=== PATIENT | female | born 1995 | race Hispanic/Latino ===

== ENCOUNTER 2017-10-10 15:41 | Emergency (ER) | payer OTHER, SELFPAY ==
--- NOTE | 2017-10-10 16:57 | RAD REPORT ---
EXAM DESCRIPTION: RAD - Hand Left 3 View - 10/10/2017 4:38 pm CLINICAL HISTORY: Pain;Swelling COMPARISON: <Comparisons> FINDINGS: Significant soft tissue swelling is seen and along the dorsum of the hand. Mild radiocarpa l arthritic changes are seen. Bony remodeling of the fifth metacarpal noted, presumably related to pr evious trauma. No acute fracture seen.
--- NOTE | 2017-10-10 18:15 | ER ---
Nurse's Notes [facility] Name: Yolanda Christianson Age: 21 yrs Sex: Female : 1995 Arrival Date: 10/10/2017 Time: 15:42 Bed 25 Private MD: Diagnosis: Pain in left hand-s/p fracture to fifth metacarpal Presentation: 10/10 15:51 Presenting complaint: Patient states: " I hurt my wrist about 2 weeks ago. 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 Transition of care: patient was not received from another setting of care. Onset of symptoms was October 10, 2017. Risk Assessment: Do you want to hurt yourself or someone else? Patient reports no desire to harm self or others. Initial Sepsis Screen: Does the patient meet any 2 criteria? No. Patient's initial sepsis screen is negative. Does the patient have a suspected source of infection? No. Patient's initial sepsis screen is negative. Care prior to arrival: None. 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 - Social history:: Smoking status: unknown. - Ebola Screening: : No symptoms or risks identified at this time. Screenin:15 Abuse screen: Denies threats or abuse. Denies injuries from another. Nutritional sv screening: No deficits noted. Tuberculosis screening: No symptoms or risk factors identified. Fall Risk None identified. Assessment: 18:00 General: Appears in no apparent distress. uncomfortable, well developed, Behavior is sv calm, cooperative, appropriate for age. Pain: Complains of pain in left arm Pain currently is 7 out of 10 on a pain scale. Quality of pain is described as throbbing, Pain began weeks ago Is continuous, Aggravated by increased activity, Noted to be guarding, resistant to movement. Neuro: Level of Consciousness is awake, alert, obeys commands, Oriented to person, place, time, situation, Gait is steady. Cardiovascular: Capillary refill < 3 seconds is brisk in bilateral fingers Patient's skin is warm and dry. Pulses are palpable in right radial artery and left radial artery. Respiratory: Respiratory effort is even, unlabored, Respiratory pattern is regular, symmetrical. Derm: Skin is pink, warm \\T\\ dry. Musculoskeletal: Range of motion: limited in left wrist Swelling present in left wrist and left hand. 19:10 Reassessment: Patient appears in no apparent distress at this time. Patient and/or sv family updated on plan of care and expected duration. Pain level reassessed. Patient is alert, oriented x 3, equal unlabored respirations, skin warm/dry/pink. Cardiovascular: Capillary refill < 3 seconds is brisk in left fingers Patient's skin is warm and dry. Musculoskeletal: Pt able to wiggle left fingers. Vital Signs: 15:56 BP 138 / 80; Pulse 96; Resp 16; Temp 98.4; Pulse Ox 98% on R/A; Weight 81.65 kg; Height ph 5 ft. 5 in. (165.10 cm); Pain 7/10; 15:56 Body Mass Index 29.95 (81.65 kg, 165.10 cm) ph ED Course: 15:42 Patient arrived in ED. sb2 15:56 Triage completed. ph 15:57 Arm band placed on Patient placed in waiting room, Patient notified of wait time. ph 16:11 Dean Russo NP is PHCP. pm1 16:11 Xavi Villanueva MD is Attending Physician. pm1 16:11 Roma Nieto FNP-C is PHCP. kb 16:13 Danay Morrow, BANDAR is Primary Nurse. sv 16:15 Patient has correct armband on for positive identification. sv 16:39 Hand Left 3 View XRAY In Process Unspecified. EDMS 18:10 Orthoglass splint: Ulnar gutter/Boxer splint applied on left forearm. Sling applied to sv left arm. 18:13 Selvin Roberts MD is Referral Physician. pm1 19:10 No provider procedures requiring assistance completed. Patient did not have IV access sv during this emergency room visit. Administered Medications: 19:10 Drug: [place] 10 mg-325 mg 1 tabs Route: PO; sv 19:10 Follow up: Response: Medication administered at discharge. sv Outcome: 18:15 Discharge ordered by . pm1 19:10 Discharged to home ambulatory, with family, Family driving her home sv 19:10 Condition: stable 19:10 Discharge instructions given to patient, Instructed on discharge instructions, follow up and referral plans. no drinking with medication, no driving heavy equipment, medication usage, Demonstrated understanding of instructions, follow-up care, medications, Prescriptions given X 1. 19:11 Patient left the ED. sv Signatures: Dispatcher [employer] EDMS Roma Nieto, ELIJAH LAZOP-Danay Stephenson RN RN Sunitha Rodriguez RN RN ph Marinas, Patrick, RAMONITA MARSHMALLOW MAKER pm1 Carleen Wiggins2
--- NOTE | 2017-10-10 18:16 | EDPHYS ---
Physician Documentation [facility] Name: Yolanda Christianson Age: 21 yrs Sex: Female : 1995 Arrival Date: 10/10/2017 Time: 15:42 Bed 25 Private MD: ED Physician Xavi Villanueva HPI: 10/10 16:18 This 21 yrs old Female presents to ER via Ambulatory with complaints of Hand pm1 Pain - Injured x2 wks ago. 16:18 The patient or guardian reports pain, swelling. The complaints affect the left hand. pm1 Context: The problem was sustained at home, resulted from lifting or pulling, Trash bag. Onset: The symptoms/episode began/occurred 2 week(s) ago. Modifying factors: The symptoms are alleviated by nothing, the symptoms are aggravated by movement. Associated signs and symptoms: Pertinent negatives: cyanosis distally, decreased sensation distally, fever, numbness distally, tingling distally. Severity of symptoms: in the emergency department the symptoms are unchanged. The patient has not experienced similar symptoms in the past. Injury occurred at work so patient was seen by the occupational physician. Xray performed and was told negative for fracture. Patient was lifting a heavy trash bag with her left hand and felt a pop. Swelling occurred a few hours after injury. Injury occurred 2 weeks ago. Patient was seen by the occupational physician, xray performed, patient given a splint to wear. 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 - Social history:: Smoking status: unknown. - Ebola Screening: : No symptoms or risks identified at this time. ROS: 16:20 Constitutional: Negative for fever, chills, and weight loss, Eyes: Negative for injury, pm1 pain, redness, and discharge, ENT: Negative for injury, pain, and discharge, Neck: Negative for injury, pain, and swelling, Cardiovascular: Negative for chest pain, palpitations, and edema, Respiratory: Negative for shortness of breath, cough, wheezing, and pleuritic chest pain, Abdomen/GI: Negative for abdominal pain, nausea, vomiting, diarrhea, and constipation, Back: Negative for injury and pain. 16:20 Skin: Negative for injury, rash, and discoloration, Neuro: Negative for headache, weakness, numbness, tingling, and seizure. 16:20 MS/extremity: Positive for pain, swelling, tenderness, of the left hand. Exam: 16:20 Constitutional: This is a well developed, well nourished patient who is awake, alert, pm1 and in no acute distress. Head/Face: Normocephalic, atraumatic. Eyes: Pupils equal round and reactive to light, extra-ocular motions intact. Lids and lashes normal. Conjunctiva and sclera are non-icteric and not injected. Cornea within normal limits. Periorbital areas with no swelling, redness, or edema. ENT: Nares patent. No nasal discharge, no septal abnormalities noted. Tympanic membranes are normal and external auditory canals are clear. Oropharynx with no redness, swelling, or masses, exudates, or evidence of obstruction, uvula midline. Mucous membranes moist. Neck: Trachea midline, no thyromegaly or masses palpated, and no cervical lymphadenopathy. Supple, full range of motion without nuchal rigidity, or vertebral point tenderness. No Meningismus. Chest/axilla: Normal chest wall appearance and motion. Nontender with no deformity. No lesions are appreciated. Cardiovascular: Regular rate and rhythm with a normal S1 and S2. No gallops, murmurs, or rubs. Normal PMI, no JVD. No pulse deficits. Respiratory: Lungs have equal breath sounds bilaterally, clear to auscultation and percussion. No rales, rhonchi or wheezes noted. No increased work of breathing, no retractions or nasal flaring. Abdomen/GI: Soft, non-tender, with normal bowel sounds. No distension or tympany. No guarding or rebound. No evidence of tenderness throughout. Back: No spinal tenderness. No costovertebral tenderness. Full range of motion. Skin: Warm, dry with normal turgor. Normal color with no rashes, no lesions, and no evidence of cellulitis. 16:20 Musculoskeletal/extremity: Extremities: grossly normal except: noted in the dorsum of left hand and palm of left hand: swelling, tenderness, intact to left hand, brisk capillary refill. Vital Signs: 15:56 BP 138 / 80; Pulse 96; Resp 16; Temp 98.4; Pulse Ox 98% on R/A; Weight 81.65 kg; Height ph 5 ft. 5 in. (165.10 cm); Pain 7/10; 15:56 Body Mass Index 29.95 (81.65 kg, 165.10 cm) ph MDM: 16:12 Patient medically screened. pm1 18:12 Data reviewed: vital signs. Data interpreted: Pulse oximetry: on room air is 98 %. pm1 Interpretation: normal. Counseling: I had a detailed discussion with the patient and/or guardian regarding: the historical points, exam findings, and any diagnostic results supporting the discharge/admit diagnosis, radiology results, the need for outpatient follow up, to return to the emergency department if symptoms worsen or persist or if there are any questions or concerns that arise at home. 10/10 16:18 Order name: Hand Left 3 View XRAY; Complete Time: 17:08 pm1 10/10 17:11 Order name: Splint - Ulnar Gutter; Complete Time: 18:10 pm1 10/10 18:27 Order name: Sling; Complete Time: 19:10 pm1 Administered Medications: 19:10 Drug: [place] 10 mg-325 mg 1 tabs Route: PO; sv 19:10 Follow up: Response: Medication administered at discharge. sv Disposition: 10/11 06:53 Co-signature as Attending Physician, Xavi Villanueva MD I agree with the assessment and álvaro plan of care. Disposition: 10/10/17 18:15 Discharged to Home. Impression: Pain in left hand - s/p fracture to fifth metacarpal. - Condition is Stable. - Discharge Instructions: Cast or Splint Care, Adult, Metacarpal Fracture, How to Use a Sling, Hand Pain. - Prescriptions for Tylenol- Codeine #3 300-30 mg Oral Tablet - take 2 tablet by ORAL route every 6 hours As needed; 30 tablet. - Medication Reconciliation Form, Thank You Letter, Antibiotic Education, Prescription Opioid Use form. - Follow up: Emergency Department; When: As needed; Reason: Worsening of condition. Follow up: Selvin Roberts MD; When: 2 - 3 days; Reason: Recheck today's complaints, Continuance of care, Re-evaluation by your physician. - Problem is new. - Symptoms have improved. Signatures: Dispatcher [employer] Danay Lomax RN RN Xavi Lackey MD MD cha Hall, Patricia, RN RN Dean Thompson, CONTACT CENTER REPRESENTATIVE CONTACT CENTER REPRESENTATIVE pm1 Corrections: (The following items were deleted from the chart) 10/10 19:11 18:15 10/10/2017 18:15 Discharged to Home. Impression: Pain in left hand - s/p fracture sv to fifth metacarpal. Condition is Stable. Forms are Medication Reconciliation Form, Thank You Letter, Antibiotic Education, Prescription Opioid Use. Follow up: Emergency Department; When: As needed; Reason: Worsening of condition. Follow up: Selvin Roberts; When: 2 - 3 days; Reason: Recheck today's complaints, Continuance of care, Re-evaluation by your physician. Problem is new. Symptoms have improved. pm1
[2017-10-10] MEDS ORDERED: HYDROCODONE/APAP 10/325 TAB ONE (19:01)
== END 2017-10-10 19:11 | disposition home or self-care (01) ==
LOC: ER 15:41
PROC: 2W3DX1Z Immobilization of Left Lower Arm using Splint (ICD-10-PCS; principal; 2017-10-10)
DX: S62.307A Unspecified fracture of fifth metacarpal bone, left hand, initial encounter for closed fracture (principal); X50.0XXA Overexertion from strenuous movement or load, initial encounter; Y93.89 Activity, other specified; Y92.89 Other specified places as the place of occurrence of the external cause
CPT/HCPCS: 99284

== ENCOUNTER 2017-10-22 11:36 | Emergency (ER) | payer SELFPAY ==
--- NOTE | 2017-10-22 12:40 | ER ---
Nurse's Notes [facility] Name: Yolanda Christianson Age: 21 yrs Sex: Female : 1995 Arrival Date: 10/22/2017 Time: 11:50 Bed 12 Private MD: None, None Diagnosis: Pain in left hand-s/p fifth metacarpal fracture 6 weeks ago Presentation: 10/22 11:53 Presenting complaint: Patient states: Reports pain and numbness to left hand that aj started yesterday. Patient DX with %th metacarpal FX 2 weeks ago. Transition of care: patient was not received from another setting of care. Onset of symptoms was October 21, 2017. Risk Assessment: Do you want to hurt yourself or someone else? Patient reports no desire to harm self or others. Initial Sepsis Screen: Does the patient meet any 2 criteria? No. Patient's initial sepsis screen is negative. Does the patient have a suspected source of infection? No. Patient's initial sepsis screen is negative. Care prior to arrival: None. 11:53 Method Of Arrival: Ambulatory 11:53 Acuity: KELLI 4 Triage Assessment: 11:55 General: Appears in no apparent distress. comfortable, Behavior is calm, cooperative, aj appropriate for age. Pain: Complains of pain in left hand. Neuro: Level of Consciousness is awake, alert, obeys commands, Oriented to person, place, time, situation, Appropriate for age. Respiratory: Airway is patent Respiratory effort is even, unlabored, Respiratory pattern is regular, symmetrical. Derm: Skin is intact, is healthy with good turgor, Skin is pink, warm \T\ dry. normal. Musculoskeletal: Reports numbness in left hand pain in left hand. 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 - Social history:: Smoking status: Patient/guardian denies using tobacco. - Ebola Screening: : Patient negative for fever greater than or equal to 101.5 degrees Fahrenheit, and additional compatible Ebola Virus Disease symptoms Patient denies exposure to infectious person Patient denies travel to an Ebola-affected area in the 21 days before illness onset No symptoms or risks identified at this time. Screenin:40 Abuse screen: Denies threats or abuse. Denies injuries from another. Nutritional iw screening: No deficits noted. Tuberculosis screening: No symptoms or risk factors identified. Fall Risk None identified. Assessment: 12:00 General: Appears in no apparent distress. comfortable, Behavior is calm, cooperative. iw Pain: Complains of pain in left little finger and left hand. Neuro: Level of Consciousness is awake, alert, obeys commands, Oriented to person, place, time, situation, Moves all extremities. Cardiovascular: Patient's skin is warm and dry. Respiratory: Respiratory effort is even, unlabored, Respiratory pattern is regular, symmetrical. Derm: Skin is intact, is healthy with good turgor. Musculoskeletal: Range of motion: limited in left hand. Vital Signs: 11:55 BP 140 / 74; Pulse 92; Resp 16; Temp 97.8; Pulse Ox 98% on R/A; Weight 81.65 kg; Height aj 5 ft. 5 in. (165.10 cm); 11:55 Body Mass Index 29.95 (81.65 kg, 165.10 cm) aj ED Course: 11:50 Patient arrived in ED. sb2 11:50 None, None is Private Physician. sb2 11:55 Triage completed. aj 11:55 Arm band placed on right wrist. Patient placed in waiting room, Patient notified of aj wait time. 12:00 Patient has correct armband on for positive identification. iw 12:25 Roma [facility]iet[facility] F[facility]-C [facility]. kb 12:25 Raul Chapman MD is Attending Physician. kb 12:36 Ellen Ferreira, BANDAR is Primary Nurse. iw 13:14 Orthoglass splint: Ulnar gutter/Boxer splint applied on left forearm. em1 13:40 No provider procedures requiring assistance completed. Patient did not have IV access iw during this emergency room visit. Administered Medications: No medications were administered Outcome: 12:40 Discharge ordered by . kb 13:44 Discharged to home ambulatory. iw 13:44 Condition: good 13:44 Discharge instructions given to patient, Instructed on discharge instructions, follow up and referral plans. Demonstrated understanding of instructions, follow-up care, splint care. 13:45 Patient left the ED. iw Signatures: Roma Nieto, THREAD CUTTER TENDER-C THREAD CUTTER TENDER-Rose Mary Gomez, RN RN Ellen John, RN RN Kyaw Ross em1 Carleen Wiggins sb2
--- NOTE | 2017-10-22 12:40 | EDPHYS ---
Physician Documentation [facility] Name: Yolanda Christianson Age: 21 yrs Sex: Female : 1995 Arrival Date: 10/22/2017 Time: 11:50 Bed 12 Private MD: None, None ED Physician Raul Chapman HPI: 10/22 12:35 This 21 yrs old Female presents to ER via Ambulatory with complaints of Arm kb Pain. 12:35 The patient or guardian complains of injury, pain, swelling. The complaints affect the kb left hand. Context: The problem was sustained at work. Onset: The symptoms/episode began/occurred 6 week(s) ago. Treatment prior to arrival includes: splinting the affected extremity. Modifying factors: The symptoms are alleviated by nothing. the symptoms are aggravated by movement. Associated signs and symptoms: Pertinent positives: numbness, pain, swelling. Severity of symptoms: At their worst the symptoms were moderate, in the emergency department the symptoms are unchanged. The patient has not experienced similar symptoms in the past. The [facility], The patient has been recently seen at the [facility] Emergency Department. Pt was diagnosed with fracture 2 weeks ago. Still having pain, swelling and intermittent numbness. Has not followed up with ortho. . 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 - Social history:: Smoking status: Patient/guardian denies using tobacco. - Ebola Screening: : Patient negative for fever greater than or equal to 101.5 degrees Fahrenheit, and additional compatible Ebola Virus Disease symptoms Patient denies exposure to infectious person Patient denies travel to an Ebola-affected area in the 21 days before illness onset No symptoms or risks identified at this time. ROS: 12:35 Constitutional: Negative for fever, chills, and weight loss, Cardiovascular: Negative kb for chest pain, palpitations, and edema, Respiratory: Negative for shortness of breath, cough, wheezing, and pleuritic chest pain, Abdomen/GI: Negative for abdominal pain, nausea, vomiting, diarrhea, and constipation, Skin: Negative for injury, rash, and discoloration, Neuro: Negative for headache, weakness, numbness, tingling, and seizure. 12:35 MS/extremity: Positive for injury or acute deformity, pain, swelling. Exam: 12:35 Constitutional: This is a well developed, well nourished patient who is awake, alert, kb and in no acute distress. Head/Face: Normocephalic, atraumatic. Chest/axilla: Normal chest wall appearance and motion. Nontender with no deformity. No lesions are appreciated. Cardiovascular: Regular rate and rhythm with a normal S1 and S2. No gallops, murmurs, or rubs. Normal PMI, no JVD. No pulse deficits. Respiratory: Lungs have equal breath sounds bilaterally, clear to auscultation and percussion. No rales, rhonchi or wheezes noted. No increased work of breathing, no retractions or nasal flaring. Abdomen/GI: Soft, non-tender, with normal bowel sounds. No distension or tympany. No guarding or rebound. No evidence of tenderness throughout. Skin: Warm, dry with normal turgor. Normal color with no rashes, no lesions, and no evidence of cellulitis. Neuro: Awake and alert, GCS 15, oriented to person, place, time, and situation. Cranial nerves II-XII grossly intact. Motor strength 5/5 in all extremities. Sensory grossly intact. Cerebellar exam normal. Normal gait. 12:35 Musculoskeletal/extremity: Extremities: grossly normal except: noted in the left hand: pain, swelling, ROM: limited active range of motion due to pain, in the left little finger, Circulation is intact in all extremities. Sensation intact. Vital Signs: 11:55 BP 140 / 74; Pulse 92; Resp 16; Temp 97.8; Pulse Ox 98% on R/A; Weight 81.65 kg; Height aj 5 ft. 5 in. (165.10 cm); 11:55 Body Mass Index 29.95 (81.65 kg, 165.10 cm) aj MDM: 12:25 Patient medically screened. kb 12:38 Data reviewed: vital signs, nurses notes. Data interpreted: Pulse oximetry: on room air kb is 98 %. Interpretation: normal. Counseling: I had a detailed discussion with the patient and/or guardian regarding: the historical points, exam findings, and any diagnostic results supporting the discharge/admit diagnosis, the need for outpatient follow up, a orthopedic surgeon, to return to the emergency department if symptoms worsen or persist or if there are any questions or concerns that arise at home. ED course: Pt has a follow up appt with [employer] on Wednesday. Educated to keep appt and take copy of x-ray from here to them to view. . 10/22 12:35 Order name: Ulnar Gutter splint; Complete Time: 13:14 kb Administered Medications: No medications were administered Disposition: 10/22/17 12:40 Discharged to Home. Impression: Pain in left hand - s/p fifth metacarpal fracture 6 weeks ago. - Condition is Stable. - Discharge Instructions: Metacarpal Fracture, [id number]. - Medication Reconciliation Form, Thank You Letter, Antibiotic Education, Prescription Opioid Use form. - Follow up: Emergency Department; When: As needed; Reason: Worsening of condition. Follow up: Private Physician; When: 2 - 3 days; Reason: Recheck today's complaints, Continuance of care, Re-evaluation by your physician. Signatures: Roma Nieto, CAPACITOR PACK PRESS OPERATOR-C CAPACITOR PACK PRESS OPERATOR-Ckb Rose Mary Danielle RN RN Ellen John RN RN iw Corrections: (The following items were deleted from the chart) 13:45 12:40 10/22/2017 12:40 Discharged to Home. Impression: Pain in left hand - s/p fifth iw metacarpal fracture 6 weeks ago. Condition is Stable. Forms are Medication Reconciliation Form, Thank You Letter, Antibiotic Education, Prescription Opioid Use. Follow up: Emergency Department; When: As needed; Reason: Worsening of condition. Follow up: Private Physician; When: 2 - 3 days; Reason: Recheck today's complaints, Continuance of care, Re-evaluation by your physician. kb
== END 2017-10-22 13:45 | disposition home or self-care (01) ==
LOC: ER 11:36
DX: S62.307G Unspecified fracture of fifth metacarpal bone, left hand, subsequent encounter for fracture with delayed healing (principal)
CPT/HCPCS: 99283

== ENCOUNTER 2018-09-28 17:20 | Inpatient (IN) | payer OTHER ==
[2018-09-28] MEDS ORDERED: Ringers Lactate 1,000 ML IV PRN (18:19)
[2018-09-28 18:32] VITALS: BMI 38.2
[2018-09-28 18:43] LABS: Absolute Lymphocytes (CBC) 1.7 K/uL (0.7-4.9); Basophils % 0.3 % (0-1.3); Hematocrit 33.3 % (36.0-45.0); Lymphocytes % 17.1 % (15.3-44.8); MPV 11.2 fL (7.6-11.3)
[2018-09-28] MEDS ORDERED: Ringers Lactate 1,000 ML IV SCH (19:00)
--- NOTE | 2018-09-28 19:45 | RAD REPORT ---
EXAM DESCRIPTION: RAD - Abdomen Single View - 09/28/2018 7:36 pm CLINICAL HISTORY: . Assess presentation FINDINGS: Cephalic with spine maternal right
[2018-09-28] MEDS ORDERED: OXYTOCIN/LR 20 UNIT/1,000 ML BAG IV SCH (20:00)
[2018-09-28] MEDS ORDERED: BUTORPHANOL 1 MG/ML INJ IV ONE (20:55)
[2018-09-28] MEDS ORDERED: PROMETHAZINE 25 MG/ML VIAL IM ONE (20:55)
[2018-09-28] MEDS ORDERED: ROPIVACAINE HCL 100 ML IV PRN (21:05)
[2018-09-28] MEDS ORDERED: FENTANYL CITR 100 MCG/2 ML IV ONE (21:05)
[2018-09-28] MEDS ORDERED: ROPIVACAINE HCL 0.2% 20ML AMP IV ONE (21:07)
[2018-09-28 23:12] LABS: RPR (Rapid Plasma Reagin) NON-REACT (NON-REACT)
[2018-09-29] MEDS ORDERED: LIDOCAINE 1% MPF 30 ML VIAL ONE (01:50)
[2018-09-29] MEDS ORDERED: METHYLERGONOVINE 0.2MG/ML AMP IM ONE (01:50)
[2018-09-29] MEDS ORDERED: CARBOPROST TROME 250 MCG/ML IM ONE (02:03)
[2018-09-29] MEDS ORDERED: DIPHENHYDRAMINE 25 MG TAB/CAP PO PRN (02:11)
[2018-09-29] MEDS ORDERED: IBUPROFEN 200 MG TAB PO PRN (02:11)
[2018-09-29] MEDS ORDERED: DOCUSATE NA/SENNA CONC 1 TAB PO PRN (02:11)
[2018-09-29] MEDS ORDERED: BISACODYL 10 MG RECTAL SUPP RECT PRN (02:11)
[2018-09-29] MEDS ORDERED: Oxycodone HCl/Acetaminophen 1 TAB TAB PO PRN ×2 (02:11)
[2018-09-29] MEDS ORDERED: ACETAMINOPHEN 500 MG TAB PO PRN (02:11)
--- NOTE | 2018-09-29 02:35 | PREOPHP ---
Date of Admission: 09/28/2018 Yolanda Christianson, a 22-year-old 5, para 1, 37 weeks and 6 days. When last seen in my office, she was 4 cm, came into labor and delivery at 5 cm according to the nurse evaluation her on admissio n, 100% effaced, possible rupture of membranes. The patient was admitted she has been started on IV Pitocin is starting to contract more regularly at this point. She is 5.5 cm. I am calling her 70% e ffaced, -1 station. Complete rupture of the 4 bags, clear fluid. FHTs normal reactive. She has had 1 mg of Stadol, 25 mg of IM Phenergan. Probably, will be requesting epidural once we get into a goo d more advanced labor pattern. Rh positive. Immune to Rubella. Strep screen negative as stated. A nticipate delivery sometime later this evening. MARIA DE JESUS/JAKE Voice ID: [id number]
[2018-09-29] MEDS ORDERED: OXYTOCIN/LR 20 UNIT/1,000 ML BAG IV SCH (03:00)
[2018-09-29] MEDS: METHYLERGONOVINE 0.2 MG TAB PO PRN ×3 (03:03→11:00)
--- NOTE | 2018-09-29 03:15 | PN ---
Patient is completely dilated. Baby is +1, but she was given spinal block with fentanyl and really c annot feel anything. She is having trouble moving her legs. We have shut off the epidural. We will let it wear off slightly, so she can feel to push. It is difficult to say how long it will be befor e she can adequately push, but right now, she just cannot effectively get the baby out. We will wait until she can start sensing pressure and then she can begin to push. MARIA DE JESUS/JAKE Voice ID: [id number] Report ID: [id number]
--- NOTE | 2018-09-29 09:14 | PN ---
Yolanda Christianson seems to be doing well. Vital signs are stable. Lochia is normal. She has up to t he restroom, voided a 1000 cc, so output is good. We will let her ambulate in the halls, and then if all is well, discontinue her IV fluid. Dismissal instructions given, but we will go over those agai n tomorrow morning. She did not get her Tdap immunization during the . As instructed, she does, though want it before she leaves and we will take care that sometime today. Doing well. Proba arin home tomorrow. MARIA DE JESUS/JAKE Voice ID: [id number] Report ID: [id number]
[2018-09-29] MEDS ORDERED: Tdap (Diph,Pertuss(Acell),Tet Vac) 0.5 ML SYR IMVAC ONE (12:00)
[2018-09-30 07:56] VITALS: BP 138/81; TEMP 97.1
--- NOTE | 2018-09-30 10:58 | OP ---
Surgeon: Kelvin Zamarripa MD Yolanda Christianson is a 22-year-old 5, para 1, 37 weeks and 6 days. Came in at 5 cm, possible early rupture of membranes, and irregular contractions. Baby was as at 0 station. Started on light Pitocin augmentation. Initially, received Stadol IV, Phenergan IM, then epidural-spinal with fentany l. She was so numb that could not push effectively and had to let the medication wear off. Second s tage of 45 minutes to an hour. Spontaneous vaginal delivery of an estimated 8-pound male , Apg ars 9 and 9. Midline second-degree laceration simulating episiotomy, repaired with 2-0 chromic after local infiltration. Moderate uterine hypertonicity after Schultze delivery of the placenta, which w as inspected and noted to be intact and normal. 550 mL blood loss. IV drip Pitocin, 0.2 mg of Methe rgine, and massage. Uterus seems to have contracted down well, but I have ordered Hemabate if there is any further recurrence of significant bleeding. The patient is quite stable throughout. Final Diagnoses: Intrauterine gestation at 38 weeks at time of delivery. Epidural-spinal block. Mo derate uterine hypotonus. NBC/MODL Voice ID: [id number] Report ID: [id number]
[2018-10-03 04:18] LABS: HBsAG Nonreactive (Nonreactive)
--- NOTE | 2018-10-03 10:19 | DS ---
Date of Discharge: 09/30/2018 This is a 22-year-old 5, para 1, at 38 weeks gestation, came in at 5 cm, 60% to 70% effaced, and juan manuel irregularly. Was admitted started on light Pitocin augmentation. Subsequently deliv ered of an estimated 8 pound male, Apgars 9 and 9. Second-degree episiotomy performed. Epidural ane sthesia supplemented by local for repair of second-degree. This was repaired with 2-0 chromic. Schu ltze delivery of the placenta. Patient had moderate hypotonicity. 0.2 mg of Methergine, IV drip Pit ocin, and massage. Estimated blood loss 500 mL. Rh positive, immune to Rubella. Negative beta stre p screen. ; afebrile, ambulating, and voiding. Lochia is normal. She has had her Tdap im munization here in the hospital. She has no post epidural problems. She requests no analgesics on d ismissal and denies any problems with ambulation, dizziness, or any other type of signs of hypovolemi a. Final Diagnoses: Intrauterine gestation at 38 weeks, vaginal delivery, moderate uterine hypotonus. MARIA DE JESUS/AKVEHL Voice ID: [id number] Report ID: [id number]
== END 2018-09-30 10:45 | disposition home or self-care (01) | DRG 807 ==
LOC: L&D 17:20 → 2ND-WC 18:00
PROVIDERS: ADMIT Specialist; ATTEND Specialist
PROC: 10E0XZZ Delivery of Products of Conception, External Approach (ICD-10-PCS; principal; 2018-09-29)
PROC: 0KQM0ZZ Repair Perineum Muscle, Open Approach (ICD-10-PCS; 2018-09-29)
DX: O70.1 Second degree perineal laceration during delivery (principal); Z37.0 Single live birth; O62.2 Other uterine inertia; Z3A.37 37 weeks gestation of pregnancy; Z23 Encounter for immunization
CPT/HCPCS: 36415; 74018; 85025; 86592; 86850; 86900; 86901; 87340; 90471; 90715; J0595; J2210; J2550; J2590; J2795; J3010

== ENCOUNTER 2024-07-06 20:34 | Emergency (ER) | payer OTHER ==
--- OUTSIDE RECORDS SUMMARY | 2024-07-06 20:40 | XMS REPORT | Continuity of Care Document ---
Author Name Unknown Address [address] [place] [address] [facility] Address [address] [place] [address] Care Team Providers Care Floor Surfacer Name Role Phone Rainer Trevino Primary Care Physicia n Doctor Unassigned, [place] Attending Clinician U BARTOLO Amador Attending Clinician Unavailable MASON JACOBO Attending Clinician Unavailable MASON JACOBO Attending Clinician Unavailable MASON JACOBO Attending Clinician Unavailable Mason Jacobo MD Attending Clinician [phone] Bola Hallman MD Attending Clinician [phone] Augustus Evans MD Attending Clinician [phone] RAINER LAUREANO Attending Clinician Unavail able Rainer Trevino Attending Clinician + Luann Le CNM Attending Clinician [phone] LUANN LE Attending Clinician Unavaila ble Visit, LailaRmchdebra Nurse Attending Clinician Unava Harini Cleaning Attending Clinician + Ultrasound, LailaMfm Attending Clinician Unavaila ble Lab, Ang-Rmchp Attending Clinician Unavailable LEXIS VELAZQUEZ Attending Clinician Unav ailable LEXIS VELAZQUEZ Attending Clinician Unav ailable 2, [facility] Attending Clinician UnavailLexis Vasquez MD Attending Clinician + [facility], Harini Davies Attending Clinician + RIVERAHARINI Attending Clinician Unavail able Akinsipriti CNP, Rainer Cedeno Attending Clinician + Doctor Unassigned, [place] Attending Clinician U BOOGIE Hurtado Attending Clinician UnavailBoogie Nieves Attending Clinician + [phone] Geoff Lucas DO Attending Clinician MASON JACOBO Admitting Clinician Unavailable Mason Jacobo MD Admitting Clinician [phone] Payers Payer Name Policy Type Policy Number Effective Date Expirati on Date Source Problems Condition Name Condition Details Condition Category Status Onset Date Resolution Date Last Treatment Date Treating Clinician Comments Source Shoulder dystocia during labor and delivery, delivered Shoulder dystocia during labor and delivery, delivered Disease Active 2023-02 00:00: 00 [facility] Vaginal delivery Vaginal delivery Disease Active 2023-02 00:00: 00 [facility] Single live Single live Disease Active 2023-02 00:00: 00 [facility] Anemia, Anemia, Disease Active 2023-02 00:00: 00 [facility] Obstetrica l laceration Obstetrica l laceration Disease Active 2023-02 00:00: 00 [facility] 38 weeks gestation of 38 weeks gestation of Disease Active 2023-02 00:00: 00 [facility] Morbid obesity with body mass index of 40.0-49.9 Morbid obesity with body mass index of 40.0-49.9 Disease Active 2023-02 00:00: 00 [facility] GDM (gestation al diabetes mellitus) GDM (gestation al diabetes mellitus) Disease Active 2023-02 0-07 00:00: 00 [facility] Decreased platelet count Decreased platelet count Disease Active 9-27 00:00: 00 [facility] Flu vaccine refused Flu vaccine refused Disease Active 9-26 00:00: 00 [facility] Group B Streptococ cus urinary tract infection affecting in second trimester Group B Streptococ cus urinary tract infection affecting in second trimester Disease Active 7-12 00:00: 00 [facility] Rubella non-immune status, antepartum Rubella non-immune status, antepartum Disease Active 7-11 00:00: 00 [facility] Maternal varicella, non-immune Maternal varicella, non-immune Disease Active 7-11 00:00: 00 [facility] Multiparit y Multiparit y Disease Active 7- 00:00: 00 [facility] Obesity in Obesity in Disease Active 7- 00:00: 00 [facility] History of spontaneou s History of spontaneou s Disease Active 7- 00:00: 00 [facility] Supervisio n of high risk , antepartum Supervisio n of high risk , antepartum Disease Active 7- 00:00: 00 [facility] Class 2 obesity due to excess calories with body mass index (BMI) of 36.0 to 36.9 in adult, unspecifie d whether serious comorbidit y present Class 2 obesity due to excess calories with body mass index (BMI) of 36.0 to 36.9 in adult, unspecifie d whether serious comorbidit y present Disease Active 2019-02 2-14 00:00: 00 [facility] Abnormal maternal glucose tolerance, antepartum Abnormal maternal glucose tolerance, antepartum Disease Resolve d 8-03 00:00: 00 2023-12-09 00:00:00 2023-12-09 10:51:51 Overview: Formattin g of this note might be different from the original. Failed 1hr pending 3hr gtt [facility] GBS (group B Streptococ cus carrier), +RV culture, currently GBS (group B Streptococ cus carrier), +RV culture, currently Disease Resolve d 7-12 00:00: 00 2023-11-11 00:00:00 2023-11-11 11:40:02 Overview: Formattin g of this note might be different from the original. PCN intrapart um [facility] Well woman exam Well woman exam Disease Resolve d 3-20 00:00: 00 2023-08-25 00:00:00 2023-08-25 13:46:21 [facility] Other general counseling and advice for contracept omaira management Other general counseling and advice for contracept omaira management Disease Resolve d 3-08 00:00: 00 2023-08-25 00:00:00 2023-08-25 13:46:25 [facility] Screening examinatio n for STD (sexually transmitte d disease) Screening examinatio n for STD (sexually transmitte d disease) Disease Resolve d 2019-02 2-14 00:00: 00 2023-08-25 00:00:00 2023-08-25 13:46:22 [facility] Need for HPV vaccinatio n Need for HPV vaccinatio n Disease Resolve d 2019-02 2-14 00:00: 00 2023-08-25 00:00:00 2023-08-25 13:46:27 [facility] Obesity (BMI 30-39.9) Obesity (BMI 30-39.9) Disease Resolve d 2016-02 0-23 00:00: 00 2023-08-25 00:00:00 2023-08-25 13:46:24 [facility] Class 2 obesity due to excess calories with body mass index (BMI) of 36.0 to 36.9 in adult, unspecifie d whether serious comorbidit y present Class 2 obesity due to excess calories with body mass index (BMI) of 36.0 to 36.9 in adult, unspecifie d whether serious comorbidit y present Disease Resolve d 2019-02 2-14 00:00: 00 2022-05-04 00:00:00 2022-05-04 13:19:51 [facility] BMI 36.0-36.9, adult BMI 36.0-36.9, adult Disease Resolve d 2016-02 00:00: 00 2022-05-04 00:00:00 2022-05-04 13:19:52 [facility] Chlamydia infection affecting Chlamydia infection affecting Disease Resolve d 05-04 00:00: 00 2022-05-04 00:00:00 2022-05-04 13:19:54 Overview: Formattin g of this note might be different from the original. MYA in 3/4 weeks-pos itive, neg 07-22-16 will need a repeat and at 36 weeks [facility] Liveborn , of garcia , born in hospital by vaginal delivery Liveborn , of garcia , born in hospital by vaginal delivery Disease Resolve d 2016-02 00:00: 00 2017-01-12 00:00:00 2017-01-12 11:04:40 [facility] Third-stag e hemorrhage Third-stag e hemorrhage Disease Resolve d 2016-02 00:00: 00 2017-01-12 00:00:00 2017-01-12 11:03:32 [facility] 37 weeks gestation of 37 weeks gestation of Disease Resolve d 2016-02 00:00: 00 2017-01-12 00:00:00 2017-01-12 11:04:29 [facility] Full-term premature rupture of membranes with onset of labor within 24 hours of rupture Full-term premature rupture of membranes with onset of labor within 24 hours of rupture Disease Resolve d 2016-02 00:00: 00 2017-01-12 00:00:00 2017-01-12 11:04:32 [facility] Benign gestationa l thrombocyt openia in third trimester Benign gestationa l thrombocyt openia in third trimester Disease Resolve d 2016-02 00:00: 00 2017-01-12 00:00:00 2017-01-12 11:04:37 [facility] Group B streptococ sherry infection during Group B streptococ sherry infection during Disease Resolve d 2016-02 0-13 00:00: 00 2017-01-12 00:00:00 2017-01-12 11:04:24 [facility] Glucosuria Glucosuria Disease Resolve d 606 00:00: 00 2017-01-12 00:00:00 2017-01-12 11:03:43 [facility] Elevated blood pressure reading without diagnosis of hypertensi on Elevated blood pressure reading without diagnosis of hypertensi on Disease Resolve d 6 00:00: 00 2017-01-12 00:00:00 2017-01-12 11:03:47 [facility] Susceptibl e to varicella (non-immun e), currently Susceptibl e to varicella (non-immun e), currently Disease Resolve d 05-08 00:00: 00 2017-01-12 00:00:00 2017-01-12 11:03:40 [facility] Supervisio n of high risk , antepartum Supervisio n of high risk , antepartum Disease Resolve d 05-01 00:00: 00 2017-01-12 00:00:00 2017-01-12 11:03:34 [facility] History of miscarriag e, currently History of miscarriag e, currently Disease Resolve d 05-01 00:00: 00 2017-01-12 00:00:00 2017-01-12 11:03:38 [facility] Chlamydia Chlamydia Disease Resolve d 07-22 00:00: 00 2016-11-25 00:00:00 2016-11-25 09:06:03 [facility] Complete spontaneou s without complicati on Complete spontaneou s without complicati on Disease Resolve d 10-10 00:00: 00 2016-05-01 00:00:00 2016-05-01 15:16:58 [facility] Habitual history, antepartum Habitual history, antepartum Disease Resolve d 10-10 00:00: 2016-05-01 00:00:00 2016-05-01 15:16:58 [facility] Chlamydia trachomati s infection of lower genitourin [place] sites Chlamydia trachomati s infection of lower genitourin [place] sites Disease Resolve d 7 00:00: 00 2016-05-01 00:00:00 2016-05-01 15:16:58 [facility] History of miscarriag e, currently , first trimester History of miscarriag e, currently , first trimester Disease Resolve d 08-14 00:00: 00 2016-05-01 00:00:00 2016-05-01 15:16:58 [facility] History of chlamydia History of chlamydia Disease Resolve d 08-14 00:00: 00 2016-05-01 00:00:00 2016-05-01 15:16:59 [facility] Chlamydia trachomati s infection of lower genitourin [place] sites Chlamydia trachomati s infection of lower genitourin [place] sites Disease Resolve d 06-29 00:00: 00 2015-08-15 00:00:00 2015-08-15 23:01:31 [facility] Allergies, Adverse Reactions, Alerts Allergy Name Allergy Type Status Severity Reaction(s) Onset Date Inactive Date Treating Clinician Comments Source NO KNOWN ALLERGIE S Drug Class Active [facility] Social History Social Habit Start Date Stop Date Quantity Comments Source ASSERTION 2023-05-27 00:00:00 [facility] History SDOH Alcohol Comment [facility] Alcoholic beverage intake 2023-11-11 00:00:00 2023-11-11 00:00:00 Current drinker of alcohol (finding) [facility] Tobacco use and exposure 2023-08-25 00:00:00 2023-08-25 00:00:00 Smokeless tobacco non-user [facility] Exposure to SARS-CoV-2 (event) 2022-04-24 00:00:00 2022-05-04 12:54:00 Not sure [facility] Alcohol intake 2022-05-04 00:00:00 2022-05-04 00:00:00 Current drinker of alcohol (finding) [facility] History of Social function 2020-01-29 00:00:00 2020-01-29 00:00:00 [facility] History SDOH Alcohol Frequency 2020-01-29 00:00:00 2020-01-29 00:00:00 3 [facility] History SDOH Alcohol Std Drinks 2020-01-29 00:00:00 2020-01-29 00:00:00 99 [facility] History SDOH Alcohol Binge 2020-01-29 00:00:00 2020-01-29 00:00:00 99 [facility] Sex assigned at 1995 00:00:00 1995 00:00:00 [facility] Smoking Status Start Date Stop Date Source Never smoked tobacco [facility] Medications Ordered Medication Name Filled Medication Name Start Date Stop Date Current Medication? Ordering Clinician Indication Dosage Frequency Signature (SIG) Comments Components Source vitamin w/FA tablet 2023-02 00:00: 00 Yes [id number] 1{tbl} Take 1 tablet by mouth in the morning. [facility] docusate 100 mg capsule 2023-02 00:00: 00 Yes [id number] 200mg Take 2 capsules by mouth once daily as needed for Constipati on. [facility] ferrous sulfate 325 mg (65 mg iron) tablet 2023-02 00:00: 00 Yes [id number] 325mg Take 1 tablet by mouth in the morning. [facility] ibuprofen 800 mg tablet 2023-02 00:00: 00 Yes [id number] 800mg Take 1 tablet by mouth every 8 (eight) hours as needed (pain). Take with food or milk. [facility] ibuprofen (IBU) tablet 600 mg 2023-02 21:15: 00 02-07 22:32 :28 No 600mg 600 mg, Oral, Q8HA1, First dose on Wed02/07/24 at 1515, Until Discontinu ed, Routine [facility] acetaminoph en (TYLENOL) tablet 650 mg 2023-02 19:00: 00 02-07 22:32 :28 No 650mg 650 mg, Oral, Q8H, First dose on Wed02/07/24 at 1300, Until Discontinu ed, Routine [facility] rho(D) immune globulin (RHOPHYLAC) injection 300 mcg 2023-02 18:45: 14 02-07 22:32 :28 No 300ug [facility] diphenhydrA MINE (BENADRYL) tablet 25 mg 2023-02 18:45: 08 02-07 22:32 :28 No 25mg [facility] ondansetron (ZOFRAN (PF)) injection 4 mg 2023-02 18:45: 08 02-07 22:32 :28 No 4mg [facility] simethicone (GAS RELIEF (SIMETHICON E)) chewable tablet 160 mg 2023-02 18:45: 08 02-07 22:32 :28 No 160mg [facility] docusate (COLACE) capsule 200 mg 2023-02 18:45: 08 02-07 22:32 :28 No 200mg 200 mg, Oral, QDAILYPRN, Starting on Wed02/07/24 at 1245, Until Wed02/08/24 at 1632, Routine, Constipati on [facility] magnesium hydroxide (MILK OF MAGNESIA) 400 mg/5 mL suspension 30 mL 2023-02 18:45: 08 02-07 22:32 :28 No 30mL [facility] benzocaine- menthol (DERMOPLAST ) 20-0.5 % topical spray 2023-02 18:45: 08 02-07 22:32 :28 No Topical, PRN, Starting on Wed02/07/24 at 1245, Until Wed02/08/24 at 1632, Routine, Perineum discomfort [facility] miSOPROStoL (CYTOTEC) tablet 400 mcg 2023-02 18:30: 00 02-06 17:15 :00 No 400ug 400 mcg, Oral, ONCE, 1 dose, On Wed02/07/24 at 1230, Routine [facility] methylergon ovine (METHERGINE ) injection 0.2 mg 2023-02 18:30: 00 02-06 17:13 :00 No .2mg 0.2 mg, Intramuscu lar, ONCE NOW, 1 dose, On Wed02/07/24 at 1230, Routine [facility] insulin regular human (HUMULIN R) 100 Units in NaCl 0.9% (NS) 100 mL infusion 2023-02 15:48: 59 02-07 03:05 :23 No 1U/h 1 Units/hr (1 mL/hr), IV Infusion, TITRATE, Parameters in Admin. Instr., Starting on Wed02/07/24 at 0948, Prior to connecting infusion to peripheral line, waste a minimum of 25 mL to allow maximum adherence to the plastic tubing. Deliver via volume controlled infusion pump with buretrol at the most proximal port. Add 1 hours volume to the buretrol each hour and infuse. 1. Glucose < 60 and patient asymptomat ic - Turn off insulin and [employer]. 2. Glucose < 60 and patient symptomati c - Turn off insulin, [employer], consider intramuscu lar glucagon, oral glucose therapy if not otherwise contraindi cated. 3. Glucose > 60 < 80 and patient is symptomati c - Turn off insulin, [employer] for dextrose fluid rate increase. Insulin drip protocol: Blood glucose (mg/dL) Insulin dosage (units/hr) IVF (125ml/hr) < 100 0 D5LR 100-140 1 D5LR 141-180 1.5 LR 181-220 2 LR 220-260 2.5 LR 260-300 3.0 LR >300 3.5 LR [facility] terbutaline (BRETHINE) injection 0.25 mg 2023-02 15:45: 00 02-06 14:31 :00 No .25mg 0.25 mg, Intravenou s, ONCE, 1 dose, On Wed02/07/24 at 0945, Routine [facility] amnioinfusi on IV infusion via GRAVITY 0.9 NaCL 500 mL 2023-02 15:15: 00 02-06 14:58 :00 No 500mL at 500 mL/hr, Intrauteri ne, ONCE, 1 dose, On Wed02/07/24 at 0915, FEDERICO, Infuse via gravity 500 ml over 1 hour. Once 500 mL has been infused, the infusion may be discontinu ed. [employer] if uterine resting tone exceeds 25 mmHg at any time during the amnioinfus ion. Obstetrics (LINDA) Aminoinfus ion Orders [facility] lactated ringers IV infusion 250 mL 2023-02 13:15: 00 02-06 18:38 :37 No 250mL at 999 mL/hr, 250 mL, IV Infusion, ONCE, 1 dose, On Wed02/07/24 at 0715, Routine [facility] ropivacaine 0.2 % (NAROPIN (PF)) epidural infusion 2023-02 12:46: 00 02-06 20:33 :10 No Epidural, CONTINUOUS PRN, Starting on Wed02/07/24 at 0646, Until Wed02/07/24 at 1433, Routine, Intra-op [facility] lidocaine-e pinephrine (XYLOCAINE W/EPINEPHRI NE) 1.5 %-1:200,000 injection 2023-02 12:44: 00 02-06 20:33 :10 No Epidural, ONCE INTRA PROCEDURE, Starting on Wed02/07/24 at 0644, Until Wed02/07/24 at 1433, Routine, Intra-op [facility] sodium citrate-cit nir acid (BICITRA) 500-334 mg/5 mL solution 30 mL 2023-02 12:19: 46 02-06 12:38 :00 No 30mL 30 mL, Oral, PRE-PROCED URE ONCE, 1 dose, Starting on Wed02/07/24 at 0619, Until Wed02/07/24 at 0638, Routine, Surgery/Pr ocedure [facility] famotidine (PEPCID) 20 mg tablet 2023-02 1-07 00:00: 00 02-07 00:00 :00 No [id number] 20mg Take 1 tablet by mouth in the morning and 1 tablet in the evening. [facility] Blood-Gluco se Meter (FREESTYLE LITE METER) Kit 2023-02 0 00:00: 00 02-07 00:00 :00 No [id number] Check blood glucose 4x daily [facility] lancets (FREESTYLE LANCETS) 28 gauge Misc 2023-02 0- 00:00: 00 02-07 00:00 :00 No [id number] Check glucose 4x daily [facility] blood sugar diagnostic (FREESTYLE LITE STRIPS) strip 2023-02 0 00:00: 00 02-07 00:00 :00 No [id number] Check blood glucose 4x daily [facility] ampicillin 500 mg capsule 09-14 00:00: 00 12-22 00:00 :00 No 500mg Take 1 capsule by mouth every 6 (six) hours. [facility] ampicillin 500 mg capsule 08-26 00:00: 00 09-06 04:59 :00 No [id number] 500mg Take 1 capsule by mouth 4 (four) times daily for 10 days. [facility] vit no.124/iron /folic ( VITAMIN ORAL) 08-24 13:50: 38 08-24 00:00 :00 No Take by mouth. [facility] vit 33-iron-fol ic-dha (SELECT-OB + DHA) 29 mg iron-1 mg -250 mg combo pack 08-24 00:00: 00 02-07 00:00 :00 No [id number] 1{packe t} Take 1 Packet by mouth in the morning. [facility] doxycycline hyclate 100 mg tablet 05-06 00:00: 00 05-14 04:59 :00 No [id number] 100mg Take 1 tablet by mouth in the morning and 1 tablet in the evening. Do all this for 7 days. [facility] VIT CALC,IRON,F OLIC ( VITAMIN ORAL) 05-04 13:00: 13 05-04 00:00 :00 No Take by mouth. [facility] metroNIDAZO LE 500 mg tablet 8-12 00:00: 00 05-04 00:00 :00 No [id number] 500mg Take 1 tablet by mouth 2 (two) times daily. [facility] azithromyci n 500 mg tablet 3-09 00:00: 00 04-24 05:59 :00 No [id number] 1000mg Take 2 tablets by mouth once now for 1 dose. [facility] metroNIDAZO LE 500 mg tablet 2019-02 00:00: 00 02-01 05:59 :00 No [id number] 1000mg Take 2 tablets by mouth 2 (two) times daily for 1 day. [facility] VIT CALC,IRON,F OLIC ( VITAMIN ORAL) 2016-02 17:04: 46 Yes Take by mouth. [facility] VIT CALC,IRON,F OLIC ( VITAMIN ORAL) 2016-02 11:04: 46 Yes Take by mouth. [facility] vitamin w/FA tablet 2016-02 00:00: 00 05-04 00:00 :00 No 1{tbl} Take 1 tablet by mouth daily. [facility] docusate calcium 240 mg capsule 2016-02 00:00: 00 05-04 00:00 :00 No 240mg Take 1 capsule by mouth once daily as needed for Constipati on. [facility] ferrous sulfate 325 mg (65 mg iron) tablet 2016-02 00:00: 00 05-04 00:00 :00 No 325mg Take 1 tablet by mouth 2 (two) times daily. [facility] ibuprofen 600 mg tablet 2016-02 00:00: 00 05-04 00:00 :00 No 600mg Take 1 tablet by mouth every 6 (six) hours as needed for Pain (scale 1-3) or Pain (scale 4-6) (Pain). Take with food or milk. [facility] Immunizations Ordered Immunization Name Filled Immunization Name Date Status Comments Source TDAP 2023-12-02 00:00:00 Completed HPV9 2020-01-29 00:00:00 Completed [facility] HPV9 2020-01-29 00:00:00 Completed [facility] HPV9 2020-01-29 00:00:00 Completed [facility] HPV9 2020-01-29 00:00:00 Completed [facility] HPV9 2020-01-29 00:00:00 Completed [facility] HPV9 2020-01-29 00:00:00 Completed [facility] HPV9 2020-01-29 00:00:00 Completed [facility] HPV9 2020-01-29 00:00:00 Completed [facility] HPV9 2020-01-29 00:00:00 Completed [facility] HPV9 2020-01-29 00:00:00 Completed [facility] HPV9 2020-01-29 00:00:00 Completed [facility] HPV9 2020-01-29 00:00:00 Completed [facility] HPV9 2020-01-29 00:00:00 Completed [facility] HPV9 2020-01-29 00:00:00 Completed [facility] HPV9 2020-01-29 00:00:00 Completed [facility] HPV9 2020-01-29 00:00:00 Completed [facility] TDAP 2016-09-30 00:00:00 Completed [facility] TDAP 2016-09-30 00:00:00 Completed [facility] TDAP 2016-09-30 00:00:00 Completed [facility] TDAP 2016-09-30 00:00:00 Completed [facility] TDAP 2016-09-30 00:00:00 Completed [facility] TDAP 2016-09-30 00:00:00 Completed [facility] TDAP 2016-09-30 00:00:00 Completed [facility] TDAP 2016-09-30 00:00:00 Completed [facility] TDAP 2016-09-30 00:00:00 Completed [facility] TDAP 2016-09-30 00:00:00 Completed [facility] Tdap 2016-09-30 00:00:00 Completed [facility] TDAP 2016-09-30 00:00:00 Completed [facility] TDAP 2016-09-30 00:00:00 Completed [facility] TDAP 2016-09-30 00:00:00 Completed [facility] TDAP 2016-09-30 00:00:00 Completed [facility] TDAP 2016-09-30 00:00:00 Completed [facility] TDAP 2016-09-30 00:00:00 Completed [facility] TDAP 2016-09-30 00:00:00 Completed [facility] TDAP Unknown Completed [facility] HPV9 Unknown Completed [facility] TDAP Unknown Completed [facility] HPV9 Unknown Completed [facility] TDAP Unknown Completed [facility] HPV9 Unknown Completed [facility] TDAP Unknown Completed [facility] HPV9 Unknown Completed [facility] TDAP Unknown Completed [facility] HPV9 Unknown Completed [facility] TDAP Unknown Completed [facility] HPV9 Unknown Completed [facility] TDAP Unknown Completed [facility] HPV9 Unknown Completed [facility] TDAP Unknown Completed [facility] HPV9 Unknown Completed [facility] TDAP Unknown Completed [facility] HPV9 Unknown Completed [facility] TDAP Unknown Completed [facility] HPV9 Unknown Completed [facility] Vital Signs Vital Name Observation Time Observation Value Comments S ource Systolic blood pressure 2024-02-08 14:54:00 117 mm[Hg] [facility] Diastolic blood pressure 2024-02-08 14:54:00 76 mm[Hg] [facility] Heart rate 2024-02-08 14:54:00 89 /min [facility] Body temperature 2024-02-08 14:54:00 36.72 Johanny [facility] Respiratory rate 2024-02-08 14:54:00 18 /min [facility] [place] Oxygen saturation in Arterial blood by Pulse oximetry 2024-02-08 14:54:00 98 /min [facility] Body height 2024-02-07 12:25:00 165.1 cm [facility] Body weight 2024-02-07 12:25:00 112 kg [facility] BMI 2024-02-07 12:25:00 41.09 kg/m2 [facility] Systolic blood pressure 2024-02-02 22:00:00 123 mm[Hg] [facility] Diastolic blood pressure 2024-02-02 22:00:00 64 mm[Hg] [facility] Heart rate 2024-02-02 22:00:00 90 /min [facility] Body temperature 2024-02-02 22:00:00 36.56 Johanny [facility] [place] Respiratory rate 2024-02-02 22:00:00 17 /min [facility] [place] Body height 2024-02-02 22:00:00 165.1 cm [facility] Body weight 2024-02-02 22:00:00 111.222 kg [facility] BMI 2024-02-02 22:00:00 40.80 kg/m2 [facility] Systolic blood pressure 2024-01-25 21:31:00 128 mm[Hg] [facility] Diastolic blood pressure 2024-01-25 21:31:00 64 mm[Hg] [facility] Heart rate 2024-01-25 21:25:00 96 /min [facility] Body temperature 2024-01-25 21:25:00 36.67 Johanny [facility] [place] Respiratory rate 2024-01-25 21:25:00 18 /min [facility] Body height 2024-01-25 21:25:00 165.1 cm [facility] Body weight 2024-01-25 21:25:00 110.224 kg [facility] BMI 2024-01-25 21:25:00 40.44 kg/m2 [facility] Systolic blood pressure 2024-01-18 18:29:00 126 mm[Hg] [facility] Diastolic blood pressure 2024-01-18 18:29:00 75 mm[Hg] [facility] Heart rate 2024-01-18 18:29:00 92 /min [facility] Body temperature 2024-01-18 18:29:00 36.61 Johanny [facility] [place] Respiratory rate 2024-01-18 18:29:00 18 /min [facility] Body height 2024-01-18 18:29:00 165.1 cm [facility] Body weight 2024-01-18 18:29:00 108.682 kg [facility] BMI 2024-01-18 18:29:00 39.87 kg/m2 [facility] Systolic blood pressure 2024-01-04 21:18:00 135 mm[Hg] [facility] Diastolic blood pressure 2024-01-04 21:18:00 69 mm[Hg] [facility] Heart rate 2024-01-04 21:18:00 103 /min [facility] Body temperature 2024-01-04 21:18:00 36.44 Johanny [facility] [place] Respiratory rate 2024-01-04 21:18:00 18 /min [facility] Body height 2024-01-04 21:18:00 165.1 cm [facility] Body weight 2024-01-04 21:18:00 107.304 kg [facility] BMI 2024-01-04 21:18:00 39.37 kg/m2 [facility] Systolic blood pressure 2023-12-23 20:34:00 135 mm[Hg] [facility] Diastolic blood pressure 2023-12-23 20:34:00 67 mm[Hg] [facility] Heart rate 2023-12-23 20:34:00 93 /min [facility] Body temperature 2023-12-23 20:34:00 36.56 Johanny [facility] [place] Respiratory rate 2023-12-23 20:34:00 18 /min [facility] Body height 2023-12-23 20:34:00 165.1 cm [facility] Body weight 2023-12-23 20:34:00 105.716 kg [facility] BMI 2023-12-23 20:34:00 38.78 kg/m2 [facility] Systolic blood pressure 2023-12-09 15:38:00 127 mm[Hg] [facility] Diastolic blood pressure 2023-12-09 15:38:00 60 mm[Hg] [facility] Heart rate 2023-12-09 15:38:00 86 /min [facility] Body temperature 2023-12-09 15:38:00 36 Johanny [facility] [place] Respiratory rate 2023-12-09 15:38:00 18 /min [facility] Body height 2023-12-09 15:38:00 165.1 cm [facility] Body weight 2023-12-09 15:38:00 103.602 kg [facility] BMI 2023-12-09 15:38:00 38.01 kg/m2 [facility] Systolic blood pressure 2023-12-02 20:01:00 123 mm[Hg] manual [facility] Diastolic blood pressure 2023-12-02 20:01:00 65 mm[Hg] manual [facility] Heart rate 2023-12-02 19:55:00 110 /min [facility] Body temperature 2023-12-02 19:55:00 36.44 Johanny [facility] Respiratory rate 2023-12-02 19:55:00 18 /min [facility] Body height 2023-12-02 19:55:00 165.1 cm [facility] Body weight 2023-12-02 19:55:00 105.325 kg [facility] BMI 2023-12-02 19:55:00 38.64 kg/m2 [facility] Body temperature 2023-11-25 15:15:00 36.72 Johanny [facility] Body weight 2023-11-25 15:15:00 104.463 kg Univ [facility] BMI 2023-11-25 15:15:00 38.32 kg/m2 [facility] Systolic blood pressure 2023-11-22 19:17:00 131 mm[Hg] [facility] Diastolic blood pressure 2023-11-22 19:17:00 66 mm[Hg] [facility] Heart rate 2023-11-22 19:17:00 91 /min [facility] Body temperature 2023-11-22 19:17:00 35.67 Johanny [facility] Respiratory rate 2023-11-22 19:17:00 17 /min [facility] Body height 2023-11-22 19:17:00 165.1 cm [facility] Body weight 2023-11-22 19:17:00 104.917 kg [facility] BMI 2023-11-22 19:17:00 38.49 kg/m2 [facility] Systolic blood pressure 2023-11-11 15:04:00 138 mm[Hg] [facility] Diastolic blood pressure 2023-11-11 15:04:00 75 mm[Hg] [facility] Heart rate 2023-11-11 15:04:00 104 /min [facility] Body temperature 2023-11-11 15:04:00 36.72 Johanny [facility] [place] Respiratory rate 2023-11-11 15:04:00 20 /min [facility] Body height 2023-11-11 15:04:00 165.1 cm [facility] Body weight 2023-11-11 15:04:00 104.384 kg [facility] BMI 2023-11-11 15:04:00 38.29 kg/m2 [facility] Systolic blood pressure 2023-10-21 14:44:00 131 mm[Hg] [facility] Diastolic blood pressure 2023-10-21 14:44:00 73 mm[Hg] [facility] Heart rate 2023-10-21 14:44:00 85 /min [facility] Body temperature 2023-10-21 14:44:00 36.61 Johanny [facility] [place] Respiratory rate 2023-10-21 14:44:00 18 /min [facility] Body height 2023-10-21 14:44:00 165.1 cm [facility] Body weight 2023-10-21 14:44:00 103.052 kg [facility] BMI 2023-10-21 14:44:00 37.81 kg/m2 [facility] Systolic blood pressure 2023-09-22 14:26:00 127 mm[Hg] [facility] Diastolic blood pressure 2023-09-22 14:26:00 78 mm[Hg] [facility] Heart rate 2023-09-22 14:26:00 93 /min [facility] Body temperature 2023-09-22 14:26:00 36.28 Johanny [facility] Respiratory rate 2023-09-22 14:26:00 20 /min [facility] Body height 2023-09-22 14:26:00 165.1 cm [facility] Body weight 2023-09-22 14:26:00 101.407 kg [facility] BMI 2023-09-22 14:26:00 37.20 kg/m2 [facility] Systolic blood pressure 2023-08-25 18:29:00 119 mm[Hg] [facility] Diastolic blood pressure 2023-08-25 18:29:00 70 mm[Hg] [facility] Heart rate 2023-08-25 18:29:00 93 /min [facility] Body temperature 2023-08-25 18:29:00 37.22 Johanny [facility] Respiratory rate 2023-08-25 18:29:00 18 /min [facility] Body height 2023-08-25 18:29:00 165.1 cm [facility] Body weight 2023-08-25 18:29:00 100.426 kg [facility] BMI 2023-08-25 18:29:00 36.84 kg/m2 [facility] Oxygen saturation in Arterial blood by Pulse oximetry 2023-08-25 18:29:00 100 /min [facility] Systolic blood pressure 2022-05-04 17:54:00 133 mm[Hg] [facility] Diastolic blood pressure 2022-05-04 17:54:00 60 mm[Hg] [facility] Heart rate 2022-05-04 17:54:00 75 /min [facility] Body temperature 2022-05-04 17:54:00 35.89 Johanny [facility] [place] Respiratory rate 2022-05-04 17:54:00 18 /min [facility] Body height 2022-05-04 17:54:00 165.1 cm [facility] Body weight 2022-05-04 17:54:00 100.018 kg [facility] BMI 2022-05-04 17:54:00 36.69 kg/m2 [facility] Systolic blood pressure 2020-09-23 16:11:00 110 mm[Hg] [facility] Diastolic blood pressure 2020-09-23 16:11:00 67 mm[Hg] [facility] Heart rate 2020-09-23 16:11:00 83 /min [facility] Body temperature 2020-09-23 16:11:00 37.22 Johanny [facility] [place] Respiratory rate 2020-09-23 16:11:00 16 /min [facility] Body height 2020-09-23 16:11:00 165.1 cm [facility] Body weight 2020-09-23 16:11:00 98.998 kg [facility] BMI 2020-09-23 16:11:00 36.32 kg/m2 [facility] Systolic blood pressure 2020-04-22 16:46:00 117 mm[Hg] [facility] Diastolic blood pressure 2020-04-22 16:46:00 69 mm[Hg] [facility] Heart rate 2020-04-22 16:46:00 88 /min [facility] Body temperature 2020-04-22 16:46:00 36.94 Johanny [facility] [place] Respiratory rate 2020-04-22 16:46:00 16 /min [facility] Body height 2020-04-22 16:46:00 165.1 cm [facility] Body weight 2020-04-22 16:46:00 100.018 kg [facility] BMI 2020-04-22 16:46:00 36.69 kg/m2 [facility] Systolic blood pressure 2020-01-29 15:44:00 128 mm[Hg] [facility] Diastolic blood pressure 2020-01-29 15:44:00 69 mm[Hg] [facility] Heart rate 2020-01-29 15:44:00 81 /min [facility] Body temperature 2020-01-29 15:44:00 37.39 Johanny [facility] [place] Respiratory rate 2020-01-29 15:44:00 16 /min [facility] Body height 2020-01-29 15:44:00 165.1 cm [facility] Body weight 2020-01-29 15:44:00 98.521 kg [facility] BMI 2020-01-29 15:44:00 36.14 kg/m2 [facility] Procedures Procedure Date / Time Performed Performing Clinician Source CBC WITH DIFF 2024-02-08 09:43:00 Raquel Rudd [facility] VENOUS CORD GAS 2024-02-07 17:11:00 Rama Umanzor [facility] [place] POCT GLUCOSE (AUTOMATED) 2024-02-07 16:20:00 Mason Jacobo [facility] [place] POCT GLUCOSE (AUTOMATED) 2024-02-07 14:45:00 Mason Jacobo [facility] [place] CENTRAL NEURAXIAL BLOCK 2024-02-07 12:51:00 Cory Kulkarni [facility] [place] HEPATITIS B SURFACE ANTIGEN 2024-02-07 12:16:00 Juan Miguel Umanzor [facility] [place] HB ABO GROUPING 2024-02-07 12:16:00 Rama Umanzor [facility] [place] RHO (D) IMMUNE GLOBULIN 2024-02-07 12:16:00 Raquel Rudd [facility] [place] SYPHILIS IGG/IGM 2024-02-07 12:16:00 Keke Umanzor [facility] [place] POCT GLUCOSE (AUTOMATED) 2024-02-07 12:14:00 Mason Jacobo [facility] [place] POCT GLUCOSE (AUTOMATED) 2024-02-02 22:38:00 Rainer Laureano [facility] [place] POCT URINALYSIS 2024-02-02 22:06:00 Luann Le [facility] [place] DIABETES TESTING REPORTS 2024-01-18 21:30:53 Doctor Unassigned, [place] [facility] [place] POCT URINALYSIS 2024-01-18 18:32:00 Luann Le [facility] [place] POCT URINALYSIS 2024-01-04 21:17:00 Luann Le [facility] [place] POCT URINALYSIS 2023-12-23 21:42:00 Luann Le [facility] [place] DIABETES TESTING REPORTS 2023-12-09 20:27:46 Doctor Unassigned, [place] [facility] [place] DIABETES TESTING REPORTS 2023-12-02 20:50:26 Doctor Unassigned, [place] [facility] [place] TDAP VACCINE, >11 YRS, IM 2023-12-02 20:11:43 Rainer Laureano [facility] [place] POCT URINALYSIS 2023-12-02 20:02:00 Luann Le [facility] [place] POCT URINALYSIS 2023-11-22 19:19:00 Luann Le [facility] [place] SECOND AND THIRD TRIMESTER ULTRASOUND 2023-11-22 19:01:00 Harini Rivera [facility] [place] NIPT - NON-INVASIVE TEST RESULTS 2023-11-11 21:13:56 Doctor Unassigned, [place] [facility] [place] POCT URINALYSIS 2023-11-11 15:07:00 Luann Le [facility] [place] POCT URINALYSIS 2023-10-21 14:46:00 Luann Le [facility] [place] SECOND AND THIRD TRIMESTER ULTRASOUND 2023-10-06 15:58:00 Harini Rivera [facility] [place] POCT URINALYSIS 2023-09-22 14:26:00 Luann Le [facility] [place] POCT URINALYSIS 2023-08-25 18:28:00 Harini Rivera [facility] [place] POCT TEST 2023-08-25 18:28:00 Reinaldo Rivera [facility] [place] GC & CHLAMYDIA AMPLIFIED ASSAY 2022-05-04 19:30:00 Rainer Laureano [facility] [place] HIV 1/2 AG-AB WITH REFLEX 2022-05-04 19:30:00 Rainer Laureano [facility] [place] TRICHOMONAS AMPLIFIED ASSAY 2022-05-04 19:30:00 Rainer Laureano [facility] [place] SYPHILIS IGG/IGM 2022-05-04 19:30:00 Brown Laureano [facility] [place] CONSENT/REFUSAL FOR DIAGNOSIS AND TREATMENT 2022-05-04 17:41:07 Doctor Unassigned, [place] [facility] [place] HIV 1/2 AG-AB WITH REFLEX 2020-04-22 17:41:00 Rainer Laureano [facility] [place] GARDASIL 9 (HPV 9V) VACCINE 2020-01-29 16:24:03 Boogie White [facility] [place] ASSIGNMENT OF BENEFITS 2020-01-29 15:22:28 Docto r Unassigned, [facility] [place] POCT TEST 2020-01-29 00:00:00 Antonina White [facility] [place] Encounters Start Date/Time End Date/Time Encounter Type Admission Type Attending [facility] Care Facility Care Department Encounter ID Source 2023-11-11 00:00:00 2024-04-01 06:54:54 Orders Only Doctor Unassigned, [place] [facility] Doctor Unassigned, [facility] 1.2.840.114 350.1.13.10 4.2.7.2.686 [id number] [facility] 2023-12-02 00:00:00 2024-04-01 06:48:14 Orders Only Doctor Unassigned, [place] [facility] Doctor Unassigned, [place] [facility] 1.2.840.114 350.1.13.10 4.2.7.2.686 [id number] [facility] 2023-12-09 00:00:00 2024-04-01 06:44:57 Orders Only Doctor Unassigned, [place] [facility] Doctor Unassigned, [facility] 1.2.840.114 350.1.13.10 4.2.7.2.686 [id number] [facility] 2024-01-18 00:00:00 2024-04-01 06:32:14 Orders Only Doctor Unassigned, [place] [facility] Doctor Unassigned, [place] [facility] 1.2.840.114 350.1.13.10 4.2.7.2.686 [id number] [facility] 2024-02-07 05:33:00 2024-02-08 16:32:00 Inpatient P ODALIS, MASON JACOBO, DEBBY PARISHEETA [facility] LIN[facility] [id number] [facility] 2024-02-07 05:33:00 2024-02-08 16:32:00 Hospital Encounter Mason Jacobo [facility] 1.2840.114 350.1.13.10 4.2.7.2.686 [id number] [facility] 2024-02-07 06:31:00 2024-02-07 12:41:00 Anesthesia Event Bola Hallman Mohamed A [facility] 1.2.840.114 350.1.13.10 4.2.7.2.686 [id number] [facility] 2024-02-02 15:45:00 2024-02-02 16:40:13 Outpatient R RAINER LAUREANO [facility] [id number] [facility] 2024-02-02 15:45:00 2024-02-02 16:40:13 Routine Visit Rainer Laureano [facility] 1.2840.114 350.1.13.10 4.2.7.2.686 [id number] [facility] 2024-02-01 00:00:00 2024-02-01 07:44:59 Refill Luann Le [facility] 1..840.114 350.1.13.10 4.2.7.2.686 [id number] [facility] 2024-01-25 15:45:00 2024-01-25 16:03:37 Outpatient R LUANN LE [facility] [id number] [facility] 2024-01-25 15:45:00 2024-01-25 16:03:37 Routine Visit Luann Le [facility] WATCH DIAL [facility]ILD [facility] 1..840.114 350.1.13.10 4.2.7.2.686 [id number] [facility] 2024-01-18 12:30:00 2024-01-18 13:04:00 Outpatient R LUANN LE [facility] [id number] [facility] 2024-01-18 12:30:00 2024-01-18 13:04:00 Routine Visit Luann Le [facility] WATCH DIAL [facility] 1..840.114 350.1.13.10 4.2.7.2.686 [id number] [facility] 2024-01-04 15:15:00 2024-01-04 15:37:08 Outpatient R LUANN LE [facility] [id number] [facility] 2024-01-04 15:15:00 2024-01-04 15:37:08 Routine Visit Luann Le [facility] WATCH DIAL [facility] & [facility]ILD [facility] 1..840.114 350.1.13.10 4.2.7.2.686 [id number] [facility] 2023-12-24 00:00:00 2023-12-28 09:50:25 Telephone Rainer Laureano [facility] 1..840.114 350.1.13.10 4.2.7.2.686 [id number] [facility] 2023-12-23 14:15:00 2023-12-23 15:13:07 Outpatient R LUANN LE [facility] [id number] [facility] 2023-12-23 14:15:00 2023-12-23 15:13:07 Routine Visit Luann Le [facility] WATCH DIAL [facility]ILD [facility] 1..840.114 350.1.13.10 4.2.7.2.686 [id number] [facility] 2023-12-09 10:30:00 2023-12-09 11:09:38 Outpatient R LUANN LE [facility] [id number] [facility] 2023-12-09 10:30:00 2023-12-09 11:09:38 Routine Visit Luann Le [facility] WATCH DIAL [facility] & [facility]ILD [facility] 1..840.114 350.1.13.10 4.2.7.2.686 [id number] [facility] 2023-12-02 15:00:00 2023-12-02 15:32:32 Outpatient R RAINER LAUREANO [facility] [id number] [facility] 2023-12-02 15:00:00 2023-12-02 15:32:32 Routine Visit Rainer Laureano [facility] WATCH DIAL [facility] 1..840.114 350.1.13.10 4.2.7.2.686 [id number] [facility] 2023-11-25 09:30:00 2023-11-25 10:42:49 Outpatient R RAINER LAUREANO [facility] [id number] [facility] 2023-11-25 09:30:00 2023-11-25 10:42:49 Nurse Visit Visit, Loren Nurse Rainer Laureano Visit, Loren Nurse [facility] 1.2.840.114 350.1.13.10 4.2.7.2.686 [id number] [facility] 2023-11-23 00:00:00 2023-11-23 17:14:12 Abstract Harini Rivera [facility] 1.0.114 350.1.13.10 4.2.7.2.686 [id number] [facility] 2023-11-22 13:45:00 2023-11-22 14:50:25 Routine Visit Rainer Laureano [facility] WATCH DIAL [facility] CHILD [facility] 1.0.114 350.1.13.10 4.2.7.2.686 [id number] [facility] 2023-11-22 13:00:00 2023-11-22 14:03:27 Outpatient P RAINER LAUREANO [facility] [id number] [facility] 2023-11-22 13:00:00 2023-11-22 14:03:27 It Security Analyst Visit Ultrasound, Rainer Lomeli [facility] WATCH DIAL [facility] CHILD [facility] 1.840.114 350.1.13.10 4.2.7.2.686 [id number] [facility] 2023-11-18 08:15:00 2023-11-18 11:17:47 It Security Analyst Visit Lab, Rainer Ruiz Lab, Loren [facility] WATCH DIAL [facility] CHILD [facility] 1.2.840.114 350.1.13.10 4.2.7.2.686 [id number] [facility] 2023-11-18 08:15:00 2023-11-18 08:15:00 Outpatient R RAINER LAUREANO [facility] [id number] [facility] 2023-11-15 00:00:00 2023-11-16 08:33:42 Telephone Rainer Laureano [facility] WATCH DIAL [facility] 1.2840.114 350.1.13.10 4.2.7.2.686 [id number] [facility] 2023-11-12 00:00:00 2023-11-12 13:24:32 Telephone Luann Le [facility] WATCH DIAL [facility] 1.840.114 350.1.13.10 4.2.7.2.686 [id number] [facility] 2023-11-11 10:00:00 2023-11-11 10:52:55 Outpatient R LUANN LE [facility] [id number] [facility] 2023-11-11 10:00:00 2023-11-11 10:52:55 Routine Visit Luann Le [facility] 1.840.114 350.1.13.10 4.2.7.2.686 [id number] [facility] 2023-10-21 09:30:00 2023-10-21 10:19:24 Outpatient R RAINER LAUREANO [facility] [id number] [facility] 2023-10-21 09:30:00 2023-10-21 10:19:24 Routine Visit Rainer Laureano [facility] 1.840.114 350.1.13.10 4.2.7.2.686 [id number] [facility] 2023-10-06 10:45:00 2023-10-06 11:06:42 Outpatient P LEXIS VELAZQUEZ CHASEY [facility] [id number] [facility] 2023-10-06 10:45:00 2023-10-06 11:06:42 It Security Analyst Visit 2, [facility] 1..114 350.1.13.10 4.2.7.2.686 [id number] [facility] 2023-09-30 00:00:00 2023-09-30 07:45:01 Case Management Luann Le [facility] WATCH DIAL [facility] 1..114 350.1.13.10 4.2.7.2.686 [id number] [facility] 2023-08-25 00:00:00 2023-09-25 18:16:59 Patient Secure Msg Doctor Unassigned, [place] Doctor Unassigned, [place] [facility] ..114 350.1.13.10 4.2.7.2.686 [id number] [facility] 2023-09-22 09:45:00 2023-09-22 10:02:41 Outpatient R LUANN LE [facility] [id number] [facility] 2023-09-22 09:45:00 2023-09-22 10:02:41 Routine Visit Luann Le [facility] W[facility] ..114 350.1.13.10 4.2.7.2.686 [id number] [facility] 2023-08-27 00:00:00 2023-08-27 15:55:26 Telephone Harini Rivera [facility] 1..114 350.1.13.10 4.2.7.2.686 [id number] [facility] 2023-08-27 00:00:00 2023-08-27 14:06:46 Case Management Harini Rivera [facility] 1.840.114 350.1.13.10 4.2.7.2.686 [id number] [facility] 2023-08-25 13:45:00 2023-08-25 14:59:37 Outpatient R HARINI RIVERA [facility] [id number] [facility] 2023-08-25 13:45:00 2023-08-25 14:59:37 Initial Visit Harini Rivera [facility] 1.840.114 350.1.13.10 4.2.7.2.686 [id number] [facility] 2023-08-25 09:00:00 2023-08-25 09:00:00 Outpatient R RAINER LAUREANO [facility] [id number] [facility] 2023-08-24 09:00:00 2023-08-24 09:00:00 Outpatient R RAINER LAUREANO [facility] [id number] [facility] 2023-06-01 15:00:00 2023-06-01 15:00:00 Outpatient R RAINER LAUREANO [facility] [id number] [facility] 2023-02-16 00:00:00 2023-02-16 00:00:00 Telephone Rainer Laureano [facility] WATCH DIAL [facility] 1.840.114 350.1.13.10 4.2.7.2.686 [id number] [facility] 2022-05-06 00:00:00 2022-05-06 00:00:00 Telephone Rainer Laureano [facility] 1.2840.114 350.1.13.10 4.2.7.2.686 [id number] [facility] 2022-05-04 13:15:00 2022-05-04 14:30:09 Outpatient R RAINER LAUREANO [facility] [id number] [facility] 2022-05-04 13:15:00 2022-05-04 14:30:09 Office Visit Rainer Laureano [facility] W[facility] DIAL [facility] CHILD [facility] 1.2.840.114 350.1.13.10 4.2.7.2.686 [id number] [facility] 2022-05-04 00:00:00 2022-05-04 00:00:00 Orders Only Doctor Unassigned, [place] [facility] 1.840.114 350.1.13.10 4.2.7.2.686 [id number] [facility] 2021-03-26 10:30:00 2021-03-26 10:30:00 Outpatient R BOOGIE WHITE [facility] [id number] [facility] 2021-02-28 00:00:00 2021-02-28 00:00:00 Telephone Boogie White [facility] WATCH DIAL [facility] CHILD [facility] 1..840.114 350.1.13.10 4.2.7.2.686 [id number] [facility] 2021-01-28 10:15:00 2021-01-28 10:15:00 Outpatient R BOOGIE WHITE [facility] [id number] [facility] 2020-10-01 10:00:00 2020-10-01 10:00:00 Outpatient R [facility] [id number] [facility] 2020-09-26 00:00:00 2020-09-26 00:00:00 Telephone Rainer Laureano [facility] WATCH [facility] 1.2.840.114 350.1.13.10 4.2.7.2.686 [id number] [facility] 2020-09-24 00:00:00 2020-09-24 00:00:00 Telephone Rainer Laureano [facility] WATCH DIAL [facility] CHILD [facility] 1.2.840.114 350.1.13.10 4.2.7.2.686 [id number] [facility] 2020-09-23 10:35:22 2020-09-23 11:31:07 Office Visit Rainer Laureano [facility] WATCH DIAL [facility] CHILD [facility] 1.2.840.114 350.1.13.10 4.2.7.2.686 [id number] [facility] 2020-09-23 11:00:00 2020-09-23 11:00:00 Outpatient R RAINER LAUREANO [facility] [id number] [facility] 2020-07-26 10:30:00 2020-07-26 10:30:00 Outpatient R BOOGIE WHITE [facility] [id number] [facility] 2020-05-07 00:00:00 2020-05-07 00:00:00 Patient Outreach Geoff Lucas [facility] [place] 1.2.840.114 350.1.13.10 4.2.7.2.686 [id number] [facility] 2020-04-23 00:00:00 2020-04-23 00:00:00 Telephone Rainer Laureano [facility] WATCH DIAL [facility] CHILD [facility] 1.2.840.114 350.1.13.10 4.2.7.2.686 [id number] [facility] 2020-04-22 10:32:33 2020-04-22 11:49:03 Office Visit Rainer Laureano [facility] WATCH DIAL [facility] 1.840.114 350.1.13.10 4.2.7.2.686 [id number] [facility] 2020-04-22 10:45:00 2020-04-22 10:45:00 Outpatient R RAINER LAUREANO [facility] [id number] [facility] 2020-02-26 10:00:00 2020-02-26 10:00:00 Outpatient R [facility] [id number] [facility] 2020-02-14 10:00:00 2020-02-14 10:00:00 Outpatient R [facility] [id number] [facility] 2020-02-14 10:00:00 2020-02-14 10:00:00 Outpatient R RAINER LAUREANO [facility] [id number] [facility] 2020-01-31 00:00:00 2020-01-31 00:00:00 Telephone Boogie White [facility] WATCH DIAL [facility]ILD [facility] 1.840.114 350.1.13.10 4.2.7.2.686 [id number] [facility] 2020-01-29 09:23:40 2020-01-29 10:43:14 Office Visit Boogie White [facility] WATCH DIAL [facility] 1..840.114 350.1.13.10 4.2.7.2.686 [id number] [facility] 2020-01-29 09:15:00 2020-01-29 09:15:00 Outpatient R BOOGIE WHITE [facility] [id number] [facility] 2020-01-29 00:00:00 2020-01-29 00:00:00 Orders Only Doctor Unassigned, [place] [facility] 1.840.114 350.1.13.10 4.2.7.2.686 [id number] [facility] 2020-01-25 09:30:00 2020-01-25 09:30:00 Outpatient R RAINER LAUREANO [facility] [id number] [facility] 2019-06-30 09:30:00 2019-06-30 09:30:00 Outpatient R [facility] [id number] [facility] 2019-06-26 00:00:00 2019-06-26 00:00:00 Telephone Larry Whiteemy R [facility] WATCH DIAL [facility] 1.2.840.114 350.1.13.10 4.2.7.2.686 [id number] [facility] Results Test Description Test Time Test Comments Results Result Co mments Source [facility] [id number] 17:25:37* Test Item Value Reference Range Interpretation Comme nts BASE EXCESS, CORD (test code = 4441184407) -3.6 mEq/L AC PH, CORD (BEAKER) (test c ode = 8086582587) 7.30 7.18-7.38 PC02, CORD (test code = 4898866216) 49 32-66 PO2, CORD (test code = 7154692645) 25 10-30 BICARBONATE, CORD (test code = 2822909990) 23 17-27 [facility]Venous Cord [id number] 17:25:16* Test Item Value Reference Range Interpretation Comme nts VENOUS BASE EXCESS, CORD (te st code = 5359992403) -2.3 mEq/L VENOUS PH, CORD (test code = 1459303392) 7.35 7.25-7.45 VENOUS PC02, CORD (test code = 3645030020) 43 27-49 VENOUS PO2, CORD (test code = 7058025680) 29 17-41 VENOUS BICARBONATE, CORD (te st code = 3421436392) 23 12-29 [facility] (AUTOMATED)2024-02-07 16:20:58* Test Item Value Reference Range Interpretation Comme nts POCT GLU (test code = 8389926762) 134 mg/dL 70-110 H Lab Interpretation (test cod e = 29362-6) Abnormal [facility] GLUCOSE (AUTOMATED)2024-02-07 14:46:24* Test Item Value Reference Range Interpretation Comme [facility] POCT GLU (test code = 5538827839) 158 mg/dL 70-110 H Lab Interpretation (test cod e = 06735-8) Abnormal [facility] Ne[facility]axial [id number] 12:51:00 Song Kulkarni MD ? ? 02/07/2024 ?6:52 AM Central Neuraxial Block Date/Time: 02/07/2024 6:51 AM Performed by: Bola Hallman MDAuthorized by: Andrew Lorenzo MD ?Patient Location: [place] Time: 02/07/2024 6:51 AMReason for Block: Labor analgesiaStaff: ?Anesthesiologist: Andrew Lorenzo MD ?Resident/PRIMARY SCHOOL PRINCIPAL: Bola Hallman MD ?Performed by: resident/CRNAPreanesthetic Checklist: patient identified, IV checked, risks and benefits explained, monitors and equipment checked, timeout performed, pre-op evaluation, surgical consent, site marked, ob/surgical consent approval, ob/surgical consent verified andanesthesia consentProcedure: ?Type of Neuraxial: Epidural ?Epidural Description: 1st attempt ? Sterility Prep cap, drape, gloves, hand hygiene and mask ? ?Sedation Level no sedation ?Patient Position: sitting ?Prep: Betadine ? ?Monitoring: heart rate / toco, continuous pulse ox, heart rate and NIBP ?Location: lumbar (1-5) ?Lumbar: L3-L4 ?Approach: midline ? ?Technique: catheter ?Guidance with: landmark technique}Epidural/Spinal Clear Fork and/or Catheter: ?Epidural/Spinal Kit: BBraun ?NeedleType: Jaredohcathy ?Needle Gauge: 17 G ?Needle Length: 3.5 in (8.89 cm) ?Needle Insertion Depth: 6 ? ?Catheter Size: 19 G ? ?Catheter at Skin Depth: 11 ?Number of Attempts: 1 ?Test Dose: lidocaine 1.5% withepinephrine 1-to-200,000 ? ?Dose: 5 cc ? ?Catheter Securement Method: clear occlusive dressing, liquid medical adhesive and surgical tapeAssessment: ?Block Outcome: a full evaluation is pending, patient comfortable, patient satisfied, patient tolerated procedure well and no apparent complications ??Procedure Assessment: patient tolerated procedure well with no complicationsNotes: ? STF, no complications, aspiration negative x 2 prior to test dose, patient educated on potential risks involved Patient identified; pre-procedure verification.Patient prepped and draped in standard sterile fashionusing betadine x 3Subcutaneous infiltration with 1% Lidocaine JEREMY at 6 cm; catheter secured at 11 cm with mastisol, tegaderm x2 and 3-inch clear tape.Aspiration test negative x 3Test dose negativePatient tolerated procedure well with no immediate complications Epidural expectations; PCEA explained and fall precautions given.[facility] GLUCOSE (AUTOMATED) 2024-02-07 12:15:26* Test Item Value Reference Range Interpretation Comme nts POCT GLU (test code = 5825067269) 105 mg/dL 70-110 Lab Interpretation (test cod e = 68073-9) Normal [facility] GLUCOSE (AUTOMATED)2024-02-02 22:39:44* Test Item Value Reference Range Interpretation Comme nts POCT GLU (test code = 4429733720) 110 mg/dL 70-110 Lab Interpretation (test cod e = 01380-8) Normal [facility] URINALYSIS W SPECIFIC [id number] 22:06:00* Test Item Value Reference Range Interpretation Comme nts POCT U SP GRAV (test code = 3255) . 1.005-1.025 POCT PH U (test code = 3254) . 5-8 POCT U LEUK EST (test code = 3263) . Negative - N egative POCT U NIT (test code = 3262) . Negative - Negati ve POCT U PROT (test code = 3259) trace Negative - Negat omaira POCT U GLU (test code = 3256) neg Negative - Negati ve POCT U KETONE (test code = 3258) . Negative - Neg ative POCT U UROBILI (test code = 3260) . 0.2-1 POCT U BILI (test code = 3261) . Negative - Negat omaira POCT U BLD (test code = 3257) . Negative - Negati ve POCT U COLOR (test code = 3266) POCT U APPEAR (test code = 3267) [facility] TEST[facility] [id number] 21:30:53 Ordered by an unspecified provider.[facility]PO[facility] URINALYSIS W SPECIFIC [id number] 18:32:00* Test Item Value Reference Range Interpretation Comme nts POCT U SP GRAV (test code = 3255) . 1.005-1.025 POCT PH U (test code = 3254) 7 mg/dl 5-8 POCT U LEUK EST (test code = 3263) trace Negative - Negative POCT U NIT (test code = 3262) neg Negative - Negati ve POCT U PROT (test code = 3259) trace Negative - Negat omaira POCT U GLU (test code = 3256) 250 Negative - Negati ve POCT U KETONE (test code = 3258) 1+ Negative - Neg ative POCT U UROBILI (test code = 3260) . 0.2-1 POCT U BILI (test code = 3261) . Negative - Negat omaira POCT U BLD (test code = 3257) neg Negative - Negati ve POCT U COLOR (test code = 3266) . POCT U APPEAR (test code = 3267) . [facility]POCT URINALYSIS W SPECIFIC [id number] 21:17:00* Test Item Value Reference Range Interpretation Comme nts POCT U SP GRAV (test code = 3255) . 1.005-1.025 POCT PH U (test code = 3254) 5 mg/dl 5-8 POCT U LEUK EST (test code = 3263) Trace Negative - Negative POCT U NIT (test code = 3262) Neg Negative - Negati ve POCT U PROT (test code = 3259) 1+ Negative - Negat omaira POCT U GLU (test code = 3256) 2+ Negative - Negati ve POCT U KETONE (test code = 3258) None Negative - Neg ative POCT U UROBILI (test code = 3260) . 0.2-1 POCT U BILI (test code = 3261) . Negative - Negat omaira POCT U BLD (test code = 3257) Trace Negative - Negati ve POCT U COLOR (test code = 3266) . POCT U APPEAR (test code = 3267) .... [facility] URINALYSIS W SPECIFIC [id number] 21:42:00* Test Item Value Reference Range Interpretation Comme nts POCT U SP GRAV (test code = 3255) . 1.005-1.025 POCT PH U (test code = 3254) 5 mg/dl 5-8 POCT U LEUK EST (test code = 3263) Trace Negative - Negative POCT U NIT (test code = 3262) Neg Negative - Negati ve POCT U PROT (test code = 3259) Trace Negative - Negat omaira POCT U GLU (test code = 3256) 1+ Negative - Negati ve POCT U KETONE (test code = 3258) None Negative - Neg ative POCT U UROBILI (test code = 3260) . 0.2-1 POCT U BILI (test code = 3261) . Negative - Negat omaira POCT U BLD (test code = 3257) Trace Negative - Negati ve POCT U COLOR (test code = 3266) . POCT U APPEAR (test code = 3267) ... [facility]DI[facility] TEST[facility] [id number] 20:27:46 Ordered by an unspecified provider.[facility]DIF[facility] [id number] 20:50:26Ordered by an unspecified provider.[facility] URINALYSIS W SPECIFIC [id number] 20:02:00* Test Item Value Reference Range Interpretation Comme nts POCT U SP GRAV (test code = 3255) . 1.005-1.025 POCT PH U (test code = 3254) . 5-8 POCT U LEUK EST (test code = 3263) . Negative - N egative POCT U NIT (test code = 3262) . Negative - Negati ve POCT U PROT (test code = 3259) trace Negative - Negat omaira POCT U GLU (test code = 3256) neg Negative - Negati ve POCT U KETONE (test code = 3258) . Negative - Neg ative POCT U UROBILI (test code = 3260) . 0.2-1 POCT U BILI (test code = 3261) . Negative - Negat omaira POCT U BLD (test code = 3257) . Negative - Negati ve POCT U COLOR (test code = 3266) . POCT U APPEAR (test code = 3267) [facility] URINALYSIS W SPECIFIC [id number] 19:19:00* Test Item Value Reference Range Interpretation Comme nts POCT U SP GRAV (test code = 3255) . 1.005-1.025 POCT PH U (test code = 3254) . 5-8 POCT U LEUK EST (test code = 3263) . Negative - N egative POCT U NIT (test code = 3262) . Negative - Negati ve POCT U PROT (test code = 3259) trace Negative - Negat omaira POCT U GLU (test code = 3256) neg Negative - Negati ve POCT U KETONE (test code = 3258) . Negative - Neg ative POCT U UROBILI (test code = 3260) . 0.2-1 POCT U BILI (test code = 3261) . Negative - Negat omaira POCT U BLD (test code = 3257) . Negative - Negati ve POCT U COLOR (test code = 3266) POCT U APPEAR (test code = 3267) [facility] - NON-INVASIVE TEST RESULTS 2023-11-11 21:13:56Ordered by an unspecified provider.[facility] URINALYSIS W SPECIFIC [id number] 15:07:00* Test Item Value Reference Range Interpretation Comme nts POCT U SP GRAV (test code = 3255) . 1.005-1.025 POCT PH U (test code = 3254) 6 mg/dl 5-8 POCT U LEUK EST (test code = 3263) Trace Negative - Negative POCT U NIT (test code = 3262) Neg Negative - Negati ve POCT U PROT (test code = 3259) Trace Negative - Negat omaira POCT U GLU (test code = 3256) Trace Negative - Negati ve POCT U KETONE (test code = 3258) 1+ Negative - Neg ative POCT U UROBILI (test code = 3260) . 0.2-1 POCT U BILI (test code = 3261) . Negative - Negat omaira POCT U BLD (test code = 3257) Trace Negative - Negati ve POCT U COLOR (test code = 3266) . POCT U APPEAR (test code = 3267) .... [facility] URINALYSIS W SPECIFIC [id number] 14:46:00* Test Item Value Reference Range Interpretation Comme nts POCT U SP GRAV (test code = 3255) . 1.005-1.025 POCT PH U (test code = 3254) . 5-8 POCT U LEUK EST (test code = 3263) . Negative - N egative POCT U NIT (test code = 3262) . Negative - Negati ve POCT U PROT (test code = 3259) Trace Negative - Negat omaira POCT U GLU (test code = 3256) 1+ Negative - Negati ve POCT U KETONE (test code = 3258) . Negative - Neg ative POCT U UROBILI (test code = 3260) . 0.2-1 POCT U BILI (test code = 3261) . Negative - Negat omaira POCT U BLD (test code = 3257) . Negative - Negati ve POCT U COLOR (test code = 3266) . POCT U APPEAR (test code = 3267) . [facility] URINALYSIS W SPECIFIC [id number] 14:26:00* Test Item Value Reference Range Interpretation Comme nts POCT U SP GRAV (test code = 3255) . 1.005-1.025 POCT PH U (test code = 3254) 5 mg/dl 5-8 POCT U LEUK EST (test code = 3263) Trace Negative - Negative POCT U NIT (test code = 3262) Neg Negative - Negati ve POCT U PROT (test code = 3259) Trace Negative - Negat omaira POCT U GLU (test code = 3256) Nml Negative - Negati ve POCT U KETONE (test code = 3258) None Negative - Neg ative POCT U UROBILI (test code = 3260) . 0.2-1 POCT U BILI (test code = 3261) . Negative - Negat omaira POCT U BLD (test code = 3257) Trace Negative - Negati ve POCT U COLOR (test code = 3266) . POCT U APPEAR (test code = 3267) . [facility] Urinalysis W Specific [id number] 18:28:00* Test Item Value Reference Range Interpretation Comme nts POCT U SP GRAV (test code = 3255) 1.020 mg/dl 1.005-1.025 POCT PH U (test code = 3254) 7 mg/dl 5-8 POCT U LEUK EST (test code = 3263) 2+ Negative - Negative POCT U NIT (test code = 3262) neg Negative - Negati ve POCT U PROT (test code = 3259) neg Negative - Negative POCT U GLU (test code = 3256) 50 Negative - Negati ve POCT U KETONE (test code = 3258) 1+ Negative - Negative POCT U UROBILI (test code = 3260) neg 0.2-1 POCT U BILI (test code = 3261) neg Negative - Negative POCT U BLD (test code = 3257) neg Negative - Negati ve POCT U COLOR (test code = 3266) POCT U APPEAR (test code = 3267) [facility] [id number] 18:28:00* Test Item Value Reference Range Interpretation Comme nts POCT PREG (test code = 1605) Positive On board controls acceptable with C Line (test code = 3574) Yes POCT PREG LOT # (test code = 3575) POCT PREG TEST DATE ( test code = 3576) [facility]SY[facility] [id number] 15:53:11* Test Item Value Reference Range Interpretation Comme nts Syphilis IgG/IgM (test code = 16463-8) Non-reactive Non-reactive URVASHI (test code = URVASHI) Non-reactive - No serologic evidence of T. pallidum infection. Cannot exclude incubating or early syphilis. Submit a second specimen in 2-4 weeks if syphilis is clinically suspected. Equivocal - Further testing to follow. Reactive - Further testing to follow. Lab Interpretation (test code = 08393-2) Normal [facility] TexasSYPHILIS [id number] 15:53:11* Test Item Value Reference Range Interpretation Comme nts Syphilis IgG/IgM (test code = 44594-8) Non-reactive Non-reactive URVASHI (test code = URVASHI) Non-reactive - No serologic evidence of T. pallidum infection. Cannot exclude incubating or early syphilis. Submit a second specimen in 2-4 weeks if syphilis is clinically suspected. Equivocal - Further testing to follow. Reactive - Further testing to follow. Lab Interpretation (test code = 61446-8) [facility] [id number] 06:41:24* Test Item Value Reference Range Interpretation Comme nts HIV Semi-quantitative (test code = 80051-6) 0.13 Negative URVASHI (test code = URVASHI) Non-reactive for HIV-1 antigen and HIV-1/HIV-2 antibodies. ?No laboratory evidence of HIV infection. ?Repeat in 2-4 weeks if acute HIV infection is suspected. [facility] [id number] 06:41:24* Test Item Value Reference Range Interpretation Comme nts HIV Semi-quantitative (test code = 56599-7) 0.13 Negative URVASHI (test code = URVASHI) Non-reactive for HIV-1 antigen and HIV-1/HIV-2 antibodies. ?No laboratory evidence of HIV infection. ?Repeat in 2-4 weeks if acute HIV infection is suspected. [facility] [id number] 07:29:44* Test Item Value Reference Range Interpretation Comme nts HIV Semi-quantitative (test code = 84814-0) Negative Negative URVASHI (test code = URVASHI) Non-reactive for HIV-1 antigen and HIV-1/HIV-2 antibodies. ?No laboratory evidence of HIV infection. ?Repeat in 2-4 weeks if acute HIV infection is suspected. [facility] 1/2 AG-AB WITH [id number] 07:29:44* Test Item Value Reference Range Interpretation Comme nts HIV Semi-quantitative (test code = 32731-0) Negative Negative URVASHI (test code = URVASHI) Non-reactive for HIV-1 antigen and HIV-1/HIV-2 antibodies. ?No laboratory evidence of HIV infection. ?Repeat in 2-4 weeks if acute HIV infection is suspected. [facility] [id number] 17:16:00* Test Item Value Reference Range Interpretation Comme nts POCT PREG (test code = 1605) Negative On board controls acceptable with C Line (test code = 3574) Yes POCT PREG LOT # (test code = 3575) POCT PREG TEST DATE ( test code = 3576) [facility]PO[facility] [id number] 17:16:00* Test Item Value Reference Range Interpretation Comme nts POCT PREG (test code = 1605) Negative On board controls acceptable with C Line (test code = 3574) Yes POCT PREG LOT # (test code = 3575) POCT PREG TEST DATE ( test code = 3576) [facility] History and Physical Notes Date/Time Note Provider Source 2024-02-07 05:46:57 TRIAGE/L&D HISTORY & PHYSICAL IDENTIFYING DATA Cat Christianson is 28 year old, /White, 38w4d, female with JACIEL 02/17/2024, by Ultrasound. : 1995 Primary Care Physician: Rainer Laureano CHIEF COMPLAINT contractions HISTORY OF PRESENT ILLNESS Cat Christianson is a 28 year old at 38w4d who presents for contractions. Patient reports contractions that started ~1.5 hours ago. Contractions are painful and 4-5 minutes apart. Patient reports gush of fluid around 0300 today. Patient denies vaginal bleeding, admits leakage of fluid, admits contractions. Patient denies headache, denies nausea/vomiting, denies RUQ pain, denies visual abnormalities. Endorses normal movement. PAST OBSTETRIC HISTORY OB History Para Term AB Living 6 2 2 0 3 2 SAB IAB Ectopic Multiple Live Births 3 0 0 0 2 # Outcome Date GA Lbr Maldonado/2nd Weight Sex Type Anes PTL Lv 6 Current 5 Term 09/29/18 38w0d 3884 g NORMAL SPONT [place] 4 Term 12/06/16 38w0d 3657 g M NORMAL SPONT EPI N [place] 3 SAB 09/2015 8w0d 2 SAB 04/26/15 8w0d 1 SAB 02/15/15 7w0d PAST MEDICAL HISTORY Problem list: Patient Active Problem List Diagnosis Date Noted 38 weeks gestation of 02/07/2024 Morbid obesity with body mass index of 40.0-49.9 02/07/2024 GDM (gestational diabetes mellitus) 11/22/2023 Decreased platelet count 11/12/2023 Flu vaccine refused 11/11/2023 Group B Streptococcus urinary tract infection affecting in third trimester 08/27/2023 Rubella non-immune status, antepartum 08/26/2023 Maternal varicella, non-immune 08/26/2023 Multiparity 08/25/2023 Obesity in 08/25/2023 History of spontaneous 08/25/2023 Supervision of high risk , antepartum 08/25/2023 Operations: Past Surgical History: Procedure Laterality Date D&C AFTER DELIVERY DILATION AND CURETTAGE (SHX) x 2 in 2016 Past Medical History: Diagnosis Date Abnormal maternal glucose tolerance, antepartum 09/17/2016 Benign gestational thrombocytopenia in third trimester 12/05/2016 Chlamydia 2016 treated Chlamydia trachomatis infection of lower genitourinary sites 06/29/2014 Chlamydia trachomatis infection of lower genitourinary sites 06/29/2014 Chlamydia trachomatis infection of lower genitourinary sites 06/29/2014 Miscarriage 2014 needed D&C Pelvic inflammatory disease (PID) 01/27/2013 Pelvic inflammatory disease (PID) 01/27/2013 CURRENT HEALTH STATUS Medications: Current Facility-Administered Medications Medication Dose Route Frequency Last Rate Last Admin D5W-LR IV infusion 1,000 mL 1,000 mL IV Infusion TITRATE dextrose 50 % in water (D50W) injection 25 mL 25 mL Slow IV Push PRN glucagon HCL injection 1 mg 1 mg Intramuscular PRN lactated ringers IV infusion 250 mL 250 mL IV Infusion PRN - SEE INSTRUCTIONS lactated ringers IV infusion 250 mL 250 mL IV Infusion PRN - SEE INSTRUCTIONS lidocaine 1% (PF) (XYLOCAINE) injection 0.3 mL 0.3 mL Infiltration PRN - SEE INSTRUCTIONS lidocaine 1% (XYLOCAINE) 10 mg/mL (1 %) injection 50 mL 50 mL Infiltration PRN - SEE INSTRUCTIONS oxytocin (PITOCIN) 30 units in NS 500 mL IV infusion 2-40 allan-units/min IV Infusion TITRATE penicillin g potassium 5 Million Units in NaCl 0.9% (NS) 100 mL MINI-BAG 5 Million Units IV Piggyback ONCE Followed by penicillin GK 3 million units in NS 50 mL IV infusion (CNR) 3 Million Units IV Piggyback Q4H ABX Sliding Scale Insulin-Regular Subcutaneous AC+HS sodium citrate-citric acid (BICITRA) 500-334 mg/5 mL solution 30 mL 30 mL Oral PRE-PROCEDURE ONCE Allergies and drug reactions: Patient has no known allergies. HOME MEDICATIONS Medications Prior to Admission Medication Sig Dispense Refill Last Dose famotidine (PEPCID) 20 mg tablet Take 1 tablet by mouth in the morning and 1 tablet in the evening. 30 tablet 2 blood sugar diagnostic (FREESTYLE LITE STRIPS) strip Check blood glucose 4x daily 100 Each 3 Blood-Glucose Meter (FREESTYLE LITE METER) Kit Check blood glucose 4x daily 1 Kit 0 lancets (FREESTYLE LANCETS) 28 gauge Misc Check glucose 4x daily 100 Each 3 vit 19-fgwg-vcpuf-dha (SELECT-OB + DHA) 29 mg iron-1 mg -250 mg combo pack Take 1 Packet by mouth in the morning. 60 Each 4 SOCIAL HISTORY Tobacco History: Social History Tobacco Use Smoking Status Never Passive exposure: Never Smokeless Tobacco Never Drug History: Social History Substance and Sexual Activity Drug Use No Alcohol History: Social History Substance and Sexual Activity Alcohol Use Yes FAMILY HISTORY Family History Problem Relation Age of Onset Breast Cancer Maternal Aunt 40 Neurological Maternal Grandfather Seizures related to head injury Arthritis NoFHx Asthma NoFHx defects NoFHx Colon Cancer NoFHx Ovarian Cancer NoFHx Uterine Cancer NoFHx Cancer NoFHx Depression NoFHx Diabetes NoFHx Genetic NoFHx Heart NoFHx High cholesterol NoFHx Hypertension NoFHx Mental retardation NoFHx Osteoporosis NoFHx Psychiatry NoFHx REVIEW OF SYSTEMS General: negative Skin: negative HEENT: negative Neck: negative HEME: negative Resp: negative Cardio: negative GI: negative : + contractions Endo: negative Neuro: negative Back: negative AMEYA: negative Psych: negative VITAL SIGNS BP: (135)/(72) Temp: [36.9 ?C (98.4 ?F)-36.9 ?C (98.5 ?F)] Temp source: Axillary (02/06 0625) Pulse: [82-93] Resp: [20] SpO2: [99 %-100 %] Height: [165.1 cm (5' 5")] Weight: [112 kg (246 lb 14.6 oz)] BMI (calculated): [41.09] PHYSICAL EXAMINATIONS General: patient alert and in no acute distress HEENT: symmetric, negative for masses Lungs: unlabored breathing Breast: deferred Cardiology: peripheral pulses intact and regular Abdomen: soft, non-tender, non-distended, no liver, spleen or abnormal masses palpated and Gravid Extremities: no clubbing, cyanosis, or edema Neuro: patient moving all extremities, no facial droop : SVE: /- REVIEW OF LABORATORY, PATHOLOGY, AND RADIOLOGY DATA Lab results: Type & Screen Lab Results Component Value Date/Time IABORH O POSITIVE 02/07/2024 06:16 AM IAT Negative 08/25/2023 02:53 PM Serologies Lab Results Component Value Date/Time VZVIGG Negative 08/25/2023 02:53 PM HIVMULTIPLEX Non-reactive 09/30/2016 01:37 PM RUBG Negative 08/25/2023 02:53 PM RUBG POSITIVE 01/27/2013 01:30 PM SYPIGG Non-reactive 12/09/2023 11:08 AM SYPIGG Nonreactive 09/30/2016 01:37 PM HBSAG Negative 08/25/2023 02:53 PM HBSAG 0.10 08/25/2023 02:53 PM Chlamydia Lab Results Component Value Date/Time VCAA Negative 01/25/2024 04:00 PM VCAA POSITIVE (A) 06/20/2014 11:32 AM Group B Strep Lab Results Component Value Date/Time CGB Positive (A) 11/25/2016 09:27 AM GTT Lab Results Component Value Date/Time GLUF 110 11/18/2023 08:14 AM [id number] 219 (H) 11/18/2023 09:15 AM GLU3H 125 (H) 11/18/2023 11:15 AM CBC Lab Results Component Value Date/Time HGB 12.1 01/25/2024 04:00 PM HGB 13.7 01/27/2013 01:30 PM HCT 36.0 01/25/2024 04:00 PM HCT 41.5 01/27/2013 01:30 PM PLT 161 (L) 01/25/2024 04:00 PM PLT 188 01/27/2013 01:30 PM Active Hospital Problems Diagnosis Date Noted 38 weeks gestation of 02/07/2024 Morbid obesity with body mass index of 40.0-49.9 02/07/2024 GDM (gestational diabetes mellitus) 11/22/2023 Decreased platelet count 11/12/2023 Group B Streptococcus urinary tract infection affecting in third trimester 08/27/2023 Mya neg Maternal varicella, non-immune 08/26/2023 Rubella non-immune status, antepartum 08/26/2023 History of spontaneous 08/25/2023 Multiparity 08/25/2023 Resolved Hospital Problems No resolved problems to display. Present on Admission: 38 weeks gestation of GDM (gestational diabetes mellitus) Group B Streptococcus urinary tract infection affecting in third trimester History of spontaneous Maternal varicella, non-immune Rubella non-immune status, antepartum Multiparity Decreased platelet count Placenta Accreta Screening Prior ? : No Prior Uterine Surgery?: No Placenta low lying/previa in current ? : No Screening outcome: A positive screening outcome indicates a history of prior delivery or prior uterine surgery, AND the presence of either a placenta low lying/previa or ultrasound suspicion of PASD in the current . Negative screening. ASSESSMENT AND PLAN Cat Christianson is a 28 year old at 38w4d by u(17) who presents for contractions. Contractions - Patient reports contractions that started ~1.5 hours ago. Contractions are painful and 4-5 minutes apart. Patient reports gush of fluid around 0300 today. - Denies VB or DFM. - SVE: /-2. Bulging bag noted on exam. Plan: Admit to L&D for AOL. Will titrate pitocin as tolerated. A1DM - Diagnosed based on failed 3 h (110, 219, 151), - Diet controlled - FSBG in triage:105 Plan: SSI ordered. GBS UTI - MYA negative on 10/21/23 Plan: PCN intrapartum. Antepartum course reviewed - 1 h 142, 3 h (110, 219, 151), sero negative, Rnot immune, VZVnot immune, HPV not immune (1), O positive/IAT negative, GBS unk, Pap NILM on 08/25/23 - H/H, plt: 12.1 / 36.0, 161 on 01/25/24 - PP control plan: undecided - [facility] Fetus - Presentation on admission: cephalic - anterior placenta - Unable to obtain EFW due to painful contractions, will defer to day team. - FHT reactive and reassuring - Normal anatomy scan D/w Dr. Noé Dos Santos Obi, MD NAVIGATOR Associated attestation - Mason Jacobo MD - 02/07/2024 6:53 AM CARE NAVIGATOR I personally examined the patient on 02/07/[address] Ruiz's resident note as written. I actively participated in the decision-making process. Please see the resident's note for additional details. [facility] Procedure Notes Date/Time Note Provider Source 2024-02-07 06:51:01 Associated Order(s): Central Neuraxial Block Central Neuraxial Block Date/Time: 02/07/2024 6:51 AM Performed by: Bola Hallman MD Authorized by: Andrew Lorenzo MD Patient Location: OB End Time: 02/07/2024 6:51 AM Reason for Block: Labor analgesia Staff: Anesthesiologist: Andrew Lorenzo MD Resident/PRIMARY SCHOOL PRINCIPAL: Bola Hallman MD Performed by: resident/PRIMARY SCHOOL PRINCIPAL Preanesthetic Checklist: patient identified, IV checked, risks and benefits explained, monitors and equipment checked, timeout performed, pre-op evaluation, surgical consent, site marked, ob/surgical consent approval, ob/surgical consent verified and anesthesia consent Procedure: Type of Neuraxial: Epidural Epidural Description: 1st attempt Sterility Prep cap, drape, gloves, hand hygiene and mask Sedation Level no sedation Patient Position: sitting Prep: Betadine Monitoring: heart rate / toco, continuous pulse ox, heart rate and NIBP Location: lumbar (1-5) Lumbar: L3-L4 Approach: midline Technique: catheter Guidance with: landmark technique} Epidural/Spinal Clear Fork and/or Catheter: Epidural/Spinal Kit: BBelie Needle Type: Tuohy Needle Gauge: 17 G Needle Length: 3.5 in (8.89 cm) Needle Insertion Depth: 6 Catheter Size: 19 G Catheter at Skin Depth: 11 Number of Attempts: 1 Test Dose: lidocaine 1.5% with epinephrine 1-to-200,000 Dose: 5 cc Catheter Securement Method: clear occlusive dressing, liquid medical adhesive and surgical tape Assessment: Block Outcome: a full evaluation is pending, patient comfortable, patient satisfied, patient tolerated procedure well and no apparent complications Procedure Assessment: patient tolerated procedure well with no complications Notes: STF, no complications, aspiration negative x 2 prior to test dose, patient educated on potential risks involved Patient identified; pre-procedure verification. Patient prepped and draped in standard sterile fashion using betadine x 3 Subcutaneous infiltration with 1% Lidocaine JEREMY at 6 cm; catheter secured at 11 cm with mastisol, tegaderm x2 and 3-inch clear tape. Aspiration test negative x 3 Test dose negative Patient tolerated procedure well with no immediate complications Epidural expectations; PCEA explained and fall precautions given. HOSPITAL ANESTHESIOLOGY [facility] Notes Date/Time Note Provider Source 2024-02-08 16:01:22 Problem: Falls, Risk of Goal: Absence of falls 02/08/2024 1601 by Heidy Najera RN Outcome: Adequate for discharge 02/08/2024 0720 by Heidy Najera RN Outcome: Progressing as expected Problem: Pain Goal: Control of pain at or below patient's documented comfort goal 02/08/2024 1601 by Heidy Najera RN Outcome: Adequate for discharge 02/08/2024 0720 by Heidy Najera RN Outcome: Progressing as expected Goal: Reduction in pain sensation 02/08/2024 1601 by Heidy Najera RN Outcome: Adequate for discharge 02/08/2024 0720 by Heidy Najera RN Outcome: Progressing as expected Problem: Breast-feeding - Ineffective Goal: Effective breast-feeding 02/08/2024 1601 by Heidy Najera RN Outcome: Adequate for discharge 02/08/2024 0720 by Heidy Najera RN Outcome: Progressing as expected Problem: Discharge Planning - Goal: Adequate for discharge 02/08/2024 1601 by Heidy Najera RN Outcome: Adequate for discharge 02/08/2024 0720 by Heidy Najera RN Outcome: Progressing as expected Goal: Mood stable 02/08/2024 1601 by Heidy Najera RN Outcome: Adequate for discharge 02/08/2024 0720 by Heidy Najera RN Outcome: Progressing as expected [facility] 2024-02-08 12:00:00 Images from the original note were not included. This note was copied from a baby's chart. Assessment (most recent) Assessment - 02/08/24 1200 General Information Visit Initial Percent of weight loss- Infant 2.12 formula fed in NICU Number of voids last 24 hours- Infant 7 Number of stools last 24 hours- 2 Mom's age (years) 28 years Gestational age 38 weeks 6 Parity 3 Living Children 3 Feeding plan Breast Breastfeed previously No Breast Pump Has Breast Pump Electric [employer] from [employer] Class Medicaid;[facility] reports being well established with her [facility] office and has # of salesperson pianos and organs who she is suppoosed to call if needs help with prior to appointment on Feb second Delivery method Risk factors GDM;Obesity;Other gbs+ with treatment Infant Oral Assessment Date of 02/07/24 Time of 1105 location NICU Breast Assessment Breast Assessment Initial Symmetry Symmetrical Size M (B-C) Shape Rounded Other Soft dense Nipple & Areola Assessment Left Areola Pliable Right Areola Pliable Left Nipple Colostrum visible;Intact;Everted;Camryn rts w/stimulation;Short Right Nipple Colostrum visible;Intact;Everted;Camryn rts w/stimulation;Short Literature Resources Resources guide;Understanding Mother and Baby Care; channel Pumping for Your Baby in NICU handout; [employer] Education Infant hunger cues;On-demand feeds at least 8 or more over 24 hours;Diaper counts/color;Benefits of breastmilk;Hand expression;Benefits of skin to skin contact;Encouraged rooming-in;Waking techniques;Signs of an effective latch;Lactogenesis;Pump frequency;Storage of expressed breastmilk;Cleaning of pump parts;Warming of expressed breastmilk;Nipple shield use, application, washing, storage and weaning;Benefits of breast massage and hand expression Suggestion Clerk Observation Pumping Yes obtaining drops using Ameda Monroe double at bedside Interventions Taught hand expression;Nipple shield Small-20mm fit with nipple shield Follow up [place];[facility] warmline;[employer] Recommended Feeding Plan Recommended feeding plan Pump/hand express minimum 8 times in 24 hours including nights. Pump for 15-25 min.;Frequent kshq-[id number]-[id number] time with parents Breastfeed when appropriate for Mom and OTHER $ SERVICES Initial Carmita Baugh RN, BSN, IBCLC NAVIGATOR Carmita Baugh RN [facility] 2024-02-08 07:20:47 Problem: Falls, Risk of Goal: Absence of falls Outcome: Progressing as expected Problem: Pain Goal: Control of pain at or below patient's documented comfort goal Outcome: Progressing as expected Goal: Reduction in pain sensation Outcome: Progressing as expected Problem: Breast-feeding - Ineffective Goal: Effective breast-feeding Outcome: Progressing as expected Problem: Discharge Planning - Goal: Adequate for discharge Outcome: Progressing as expected Goal: Mood stable Outcome: Progressing as expected [facility] 2024-02-08 01:35:46 Problem: Intrapartum process (including labor pain) Goal: Absence of or reduction of complications of labor Outcome: Resolved Goal: Able to cope with pain Outcome: Resolved Goal: Adequate to move to next level of care Outcome: Resolved Goal: Reduction in pain sensation Outcome: Resolved Problem: Falls, Risk of Goal: Absence of falls 02/08/2024134 by Lakshmi Calvo RN Outcome: Progressing as expected 02/08/2024134 by Lakshmi Calvo RN Outcome: Progressing as expected Problem: Pain Goal: Control of pain at or below patient's documented comfort goal 02/08/2024134 by Lakshmi Calvo RN Outcome: Progressing as expected 02/08/2024134 by Lakshmi Calvo RN Outcome: Progressing as expected Goal: Reduction in pain sensation 02/08/2024134 by Lakshmi Calvo RN Outcome: Progressing as expected 02/08/2024134 by Lakshmi Calvo RN Outcome: Progressing as expected Problem: Breast-feeding - Ineffective Goal: Effective breast-feeding Outcome: Progressing as expected Problem: Discharge Planning - Goal: Adequate for discharge Outcome: Progressing as expected Goal: Mood stable Outcome: Progressing as expected NAVIGATOR [facility] 2024-02-07 19:54:47 Problem: Intrapartum process (including labor pain) Goal: Absence of or reduction of complications of labor Outcome: Progressing as expected Goal: Able to cope with pain Outcome: Progressing as expected Goal: Adequate to move to next level of care Outcome: Progressing as expected Goal: Reduction in pain sensation Outcome: Progressing as expected Problem: Falls, Risk of Goal: Absence of falls Outcome: Progressing as expected Problem: Pain Goal: Control of pain at or below patient's documented comfort goal Outcome: Progressing as expected Goal: Reduction in pain sensation Outcome: Progressing as expected NAVIGATOR Shivani Crawford RN [facility] 2024-02-07 14:33:36 Patient: Cat Christianson Procedure Summary Date: 02/07/24 Room / Location: Anesthesia Start: 06 Anesthesia Stop: 124 Procedure: CENTRAL NEURAXIAL BLOCK Diagnosis: Scheduled Providers: Responsible Provider: Augustus Evans MD Anesthesia Type: Epidural ASA Status: 2 Anesthesia Type: Epidural Last vitals BP Temp Pulse Resp SpO2 There were no known notable events for this encounter. Anesthesia Post Evaluation Patient location during evaluation: bedside Patient participation: complete - patient participated Level of consciousness: awake Pain score: 0 Pain management: adequate Airway patency: patent Cardiovascular status: acceptable Respiratory status: acceptable, room air, unassisted and spontaneous ventilation Hydration status: stable Comments: ANESTHESIA FACULTY EPIDURAL NOTE Date of service: 02/07/2024 Patient awake s/p with ALLISON. Now s/p catheter removal. BP 138/71 | Pulse 103 | Temp 37.1 ?C (98.7 ?F) (Axillary) | Resp 19 | Ht 1.651 m (5' 5") | Wt 112 kg (246 lb 14.6 oz) | LMP 05/05/2023 | SpO2 100% | BMI 41.09 kg/m? Block resolving appropriately. Patient discharged from L&D according to criteria. Complications: No apparent complications Nursing @LASTFLOWEPIDURAL@ Fall precautions given by nursing staff Augustus Evans MD HOSPITAL AN-ANESTHESIOLOGY ANESTHESIOLOGIST [facility] 2024-02-07 11:34:23 DELIVERY BY SPONTANEOUS VAGINAL DELIVERY Delivery Date: 02/07/2024 Delivery Time: 11:05 AM Delivery Summary The patient was admitted to the Labor & Delivery unit for AOL at 38 weeks due to contractions and cervical change. Delivery Physician: Sophia Watts MD OB Faculty: Xavi Faust DO [facility] Fellow: Rosendo Wilkins DO Intrapartum Anesthesia/Analgesia: Epidural Mode of Delivery: Delivery of garcia fetus with cephalic presentation Fetus head delivered in occiput anterior position. As the head crowned and distended the perineum, right mediolateral episiotomy was performed. A blue towel draped hand was used to exert forward pressure on the chin through the perineum with Ritgen maneuver. The other hand was used to exert pressure on the occiput to control the delivery of the head. The perineum was pushed with a towel-draped hand as the head and mouth was delivered over the perineum. The head was allowed to rotate externally to achieve natural body posture with face to maternal left. Examination of neck revealed no umbilical cord. After failed delivery of the anterior shoulder by gentle downward traction, shoulder dystocia was recognized and Roula maneuver was performed, followed by suprapubic pressure. Malik maneuver was attempted with adduction of anterior (left) shoulder, unsuccessful. Delivery of posterior (right) arm was attempted but unsuccessful. After failed attempt to deliver the anterior shoulder, Harper screw maneuver was applied with counter clockwise rotation with the anterior shoulder below the pubic symphysis. This was followed by downward traction with delivery of anterior shoulder and body. Time elapsed from delivery of the head to delivery of the body was less than 120 seconds. A normal male was delivered. After the delivery of infant, bulb suction was performed from oropharynx and nostril with removal of thin meconium. The umbilical cord was clamped, cut and the was handed off the field to the pediatrians. The pediatricians were present at the stand prior to delivery to evaluate the . A normal, male was delivered. The umbilical cord was double clamped, cut and the infant was handed off the field to the circulating nurse Placenta Placenta was delivered spontaneously while the abdominal hand lifted the uterus cephalad and other hand keeping the umbilical cord slightly taut. Laceration Laceration Repair: 2nd Degree - Second degree episiotomy was repaired. Suture was used with continuous locking fashion to close the vaginal mucosa and submucosa. The hymenal ring is reapproximated and tied with the same suture. The fascia and muscle of perineum was reapproximated with continuous suturing from forchett toward inferior edge. Continuous subcutaneous stitch was used to reapproximate the perineal skin with the same suture. . Fourth Stage Fourth stage of labor was managed by uterine massage with abdominal hand and infusion 30 units of pitocin mixed with intravenous fluid at 600cc/hr. The shoulder dystocia and its potential implications were thoroughly discussed with the patient. EBL:600cc Additional uterotonics given: 02.mg IM methergine, 400mcg buccal misoprostol Complications: none Weight: 3780 g 1 Minute 5 Minute 10 Minute Totals: 7 9 Sophia Watts MD PGY-4 OBGYN NAVIGATOR Associated attestation - Xavi Faust DO - 02/08/2024 4:12 PM CARE NAVIGATOR Attending addendum: I was present for and participated in the vaginal delivery complicated by shoulder dystocia and I agree with the delivery note with following corrections. 4th year resident performed head delivery, attempts at Roula and suprapubic, Malik, and posterior arm. Episiotomy then performed by residents with repeat attempt at posterior arm by 4th year resident. I took over at this point. Attempted posterior arm with inability to reach/access the forearm for safe delivery. Returned to Malik maneuver which was ultimately successful. Xavi Faust DO [facility] 2024-02-07 07:00:55 Problem: Intrapartum process (including labor pain) Goal: Absence of or reduction of complications of labor Outcome: Progressing as expected Goal: Able to cope with pain Outcome: Progressing as expected Goal: Adequate to move to next level of care Outcome: Progressing as expected Goal: Reduction in pain sensation Outcome: Progressing as expected Problem: Falls, Risk of Goal: Absence of falls Outcome: Progressing as expected Problem: Pain Goal: Control of pain at or below patient's documented comfort goal Outcome: Progressing as expected Goal: Reduction in pain sensation Outcome: Progressing as expected NAVIGATOR Jie Vega RN [facility] 2024-02-07 06:28:57 Name/ MRN / Age / Gender: Cat Christianson, [id number] 28 year old female BMI: Estimated body mass index is 41.09 kg/m? as calculated from the following: Height as of this encounter: 1.651 m (5' 5"). Weight as of this encounter: 112 kg (246 lb 14.6 oz). Allergies: Patient has no known allergies. Last Vitals: BP Readings from Last 1 Encounters: 02/07/24 135/72 Pulse Readings from Last 1 Encounters: 02/07/24 88 SpO2 Readings from Last 1 Encounters: 02/07/24 99% Date of Surgery: Surgeon: * Surgery not found * Procedure: CENTRAL NEURAXIAL BLOCK OR Location: * No surgery found * Anesthesia Preop Eval (physical exam) Anesthesia Preop: Chart Review and [id number] [facility] Communication: 28 year old female at 38w4d requesting central neuraxial anesthesia PONV Risk Factors: female Anesthesia History Anesthesia History Negative (-) Hx of anesthetic complications Previous Anesthetics/Airways Cardiovascular Negative Cardiac ROS Comments: BP Readings from Last 3 Encounters: 02/07/24 : 135/72 02/02/24 : 123/64 01/25/24 : 128/64 Pulmonary Negative Pulmonary ROS Neuro/Musculoskeletal Negative Neuro/Musculosketal ROS (-) Spinal Cord injury (-) Positioning limitations GI/Hepatic Negative GI/Hepatic ROS Hematology Negative Hematology ROS Comments: HGB Date Value 01/25/2024 12.1 g/dL 01/27/2013 13.7 G/DL PLT x10 3 (/uL) Date Value 01/27/2013 188 PLT (10*3/?L) Date Value 01/25/2024 161 (L) Type and Screen Ordered: Yes Patient Accepts Blood Transfusion: Yes Renal Negative Renal ROS Skin Negative Skin ROS Endo/Other Negative Endo/Other ROS Comments: No results found for: "[id number]" No results found for: "HGBA1C" 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 Antepartum course reviewed - 1 h 142, 3 h (110, 219, 151), sero negative, Rnot immune, VZVnot immune, HPV , O positive/IAT negative, GBS unk, Pap NILM on 08/25/23 - H/H, plt: 12.1 / 36.0, 161 on 01/25/24 - PP control plan: - [facility] Pediatric Pediatric N/A N/A Preoperative Medication Instructions Continue taking all prescribed medications except: JULIA inhibitors, ARBs, diuretics, all oral diabetes medications Anticoagulant Therapy: Defer to surgeons Insulin: Take 1/2 dose the night prior to surgery. Hold on DOS. Phentermine: Alert [facility] anesthesiologist SGLT2 Inhibitors: "gliflozins" to be held for 3 days prior to elective surgeries GLP1 Agonosit: stop 7 days prior to surgery MAC Cases: Continue taking JULIA inhibitors and ARBs ASA Classification ASA: 2 Labs: Chemistry - CBC 01/25/2024 - - - - 9.66 12.1 161 (L) - - - 36.0 eGFR: - Date: - ANC: 7.58 (H) Date: 01/25/2024 LFTs - Coags AST: - AP: - Prot: - Ca: - PT: - Date: - ALT: - T Devendra: - Alb: - PTT: - Date: - PO4: - Date: - INR: - Date: - Cardiac Endocrine & other pBNP: - Date: - A1C: - Date: - Trop I: - Date: - POCT A1C: - Date: - CK: - Date: - TSH: - Date: - CKMB: - Date: - FT4: - Date: - LDL: - Date: - Lact: - Date: - Procal: - Date: - Respiratory -|-|-|-|- D-dimer: - ABG Date: - Date: - Miscellaneous Type and Screen: O POSITIVE Antibody: Negative Date: 08/25/2023 POCT : Positive Date: 08/25/2023 Current Medications: No outpatient medications have been marked as taking for the 02/07/24 encounter (Hospital Encounter). Previous Surgeries: Past Surgical History: Procedure Laterality Date D&C AFTER DELIVERY DILATION AND CURETTAGE (SHX) x 2 in 2016 Anesthesia Physical Exam General no apparent distress and alert and oriented x 3 Neuro/Psych neurological Dental no notable dental hx Abdominal (+) abdomen soft, benign and gravid Airway Mallampati score:III TM distance:> 5 cm Mouth opening:normal Extremity Pulmonary Other Cardiovascular Rhythm:regular Rate: normal Anesthesia Plan ASA Status: 2 Plan discussed during pre-op evaluation: General, Epidural, Spinal and CSE Anesthetic plan on DOS: Epidural Anesthesia plan discussed with: patient or appliance service representative Post-Operative Analgesia: routine analgesia & antiemetics Recovery Plan: LDR Additional comments: HOSPITAL AN-PAIN MEDICINE ANESTHESIOLOGIST [facility] 2024-02-07 06:28:02 Problem: Intrapartum process (including labor pain) Goal: Absence of or reduction of complications of labor Outcome: Progressing as expected Goal: Able to cope with pain Outcome: Progressing as expected Goal: Adequate to move to next level of care Outcome: Progressing as expected Goal: Reduction in pain sensation Outcome: Progressing as expected Problem: Falls, Risk of Goal: Absence of falls Outcome: Progressing as expected Problem: Pain Goal: Control of pain at or below patient's documented comfort goal Outcome: Progressing as expected Goal: Reduction in pain sensation Outcome: Progressing as expected [facility] 2023-12-28 09:50:17 Noted. NAVIGATOR Georgie Seay LVN [facility] 2023-12-28 09:39:58 Called patient and reminded her of the breast pump options at the hospital. NAVIGATOR Johanna Salomon [facility] 2023-12-24 16:23:21 Cat Christianson is a 28 year old female Patient called to ask what breast pumps are offered at the [facility]. Please contact pt at [phone] (home) RA White [facility] 2023-11-16 08:33:14 Called pt, discussed lab results and poc. Verbalized understanding. Gianna Sarkar RN 11/16/23 8:33 AM [facility] 2023-11-15 16:27:30 Please notify the patient she failed her 1 hr gtt. She needs to come in for a fasting 3hr gtt CAMACHO Hernández 11/15/2023 4:27 PM [facility] 2023-11-12 13:23:45 Called pt, advised will need 3 hour gtt to rule out gestational diabetes. Educated on fasting instructions and pt scheduled for lab visit. Pt verbalized understanding. GIANNA Sarkar RN 11/12/2023 1:24 PM [facility] 2023-11-12 12:52:58 Patient returned missed calls from nurse Please contact pt at [phone] (home) Nicki Vegais [facility] 2023-11-12 12:49:58 2nd attempt to call patient, no answer, no vm setup. Georgie Seay LVN [facility] 2023-11-12 08:07:41 Attempted to call patient, no answer, no vm setup. [facility] 2023-11-12 06:44:26 Please call patient and set up 3 hour GTT. [facility] 2023-09-22 09:45:00 Addended by: LUANN LE CNM on: 09/22/2023 10:02 AM Modules accepted: Level of Service [facility] 2023-08-27 15:52:20 Called pt. And notified: CAMACHO Sutherland 08/27/2023 2:07 PM CDT Back to Top Can you please notify pt and let her know that her urine culture was positive for GBS (Group beta strep) and that antibiotics was sent to pharmacy on file. Also inform pt that she will need to be treated with antibiotics during labor because this type of bacteria can potentially cause infections for them when exposed during labor or delivery. Thanks Pt. Verbalizes understanding and denies any further questions or concerns. [facility] 2023-02-17 16:18:00 Noted. NAVIGATOR Georgie Seay LVN [facility] 2023-02-17 16:17:07 Attempted to contact patient x3 to schedule appointment. NAVIGATOR Cesilia Chavez [facility] 2023-02-16 13:58:33 Cat Christianson is a 27 year old female Pt is calling to get an appt scheduled for a pap. Pt was seen 05/04/22 for a WWE and was told to schedule for a pap in January. NAVIGATOR Phil Castrejon [facility]
--- NOTE | 2024-07-06 22:28 | RAD REPORT ---
EXAMINATION: Transvaginal OB COMPARISON: None. HISTORY: VAGINAL BLEEDING TECHNIQUE: Real-time ultrasound was performed through the pelvis. A transvaginal scan was performed t o better visualize the intrauterine contents and adnexa. FINDINGS: Endometrial stripe is thickened to 18 mm. No gestational sac is seen. Both ovaries are normal in size, shape and echotexture. No adnexal masses or significant free fluid. IMPRESSION: Thickened endometrial stripe noted which may be related to early . In the setting of a posit omaira hCG level, this would indicate of unknown location. Serial hCG level measurements and follow-up pelvic sonography in 7-10 days would be recommended.
[2024-07-06 23:47] LABS: Absolute Eosinophils 0.2 K/uL (0-0.5); Absolute Lymphocytes (CBC) 2.3 K/uL (0.7-4.9); Absolute Monocytes 0.4 K/uL (0.1-1.3); Absolute Neutrophil 4.3 K/uL (1.8-8.0); Basophils % 0.6 % (0-1.3); Eosinophils % 2.8 % (0-4.4); Hematocrit 39.7 % (36.0-45.0); Hemoglobin 13.7 g/dL (12.0-15.0); Lymphocytes % 31.9 % (15.3-44.8); MCH 28.6 pg (27.0-35.0); MCHC 34.5 g/dL (32.0-36.0); MPV 9.6 fL (7.6-11.3); Monocytes % 5.7 % (3.3-12.3); Nucleated Red Blood Cells % 0.1 % (0-0); Platelets 161 thou/uL (152-406); RBC Red Blood Cell Count 4.78 M/uL (3.86-4.86); Red Cell Distribution Width 13.8 % (12.1-15.2)
[2024-07-07 00:09] LABS: Specific Gravity > 1.030 (1.005-1.030)
[2024-07-07 00:23] LABS: Specific Gravity > 1.030 (1.005-1.030); Sqamous Epithelial <5 /HPF (None Seen); Urine Bacteria <20 /HPF (<20); Urine Bilirubin NEGATIVE (Negative); Urine Blood 3+ (Negative); Urine Clarity Clear (Clear); Urine Color Yellow (Yellow); Urine Culture Reflex Order REFLEXED; Urine Glucose NEGATIVE (Negative); Urine Ketones TRACE (Negative); Urine Microscopic Reflex YN ORDER UMIC; Urine Mucus 2+ /HPF (None Seen); Urine Nitrite NEGATIVE (Negative); Urine Protein TRACE (Negative); Urine RBC >50 /HPF (None Seen); Urine Urobilinogen 2+ (Normal)
[2024-07-07 00:28] LABS: Anion Gap 6.8 mEq/L (5.0-15.0); Potassium 3.8 mEq/L (3.5-5.1)
--- NOTE | 2024-07-07 00:34 | ER ---
Nurse's Notes [facility] Name: Yolanda Christianson Age: 28 yrs Sex: Female : 1995 Arrival Date: 07/06/2024 Time: 20:34 Bed 18 Private MD: Diagnosis: Threatened Presentation: 07/06 21:23 Chief complaint: Patient states: I started having vaginal bleeding this afternoon and jb4 it is now little clots here and there. I am about 7 weeks . Coronavirus screen: At this time, the client does not indicate any symptoms associated with coronavirus-19. Ebola Screen: No symptoms or risks identified at this time. Initial Sepsis Screen: Does the patient meet any 2 criteria? No. Patient's initial sepsis screen is negative. Does the patient have a suspected source of infection? No. Patient's initial sepsis screen is negative. Risk Assessment: Do you want to hurt yourself or someone else? Patient reports no desire to harm self or others. Onset of symptoms was July 06, 2024. Transition of care: patient was not received from another setting of care. 21:23 Method Of Arrival: Ambulatory jb4 21:23 Acuity: KELLI 3 jb4 Triage Assessment: 21:24 General: Appears in no apparent distress. comfortable, Behavior is calm, cooperative, jb4 appropriate for age. Pain: Denies pain. Neuro: Level of Consciousness is awake, alert, obeys commands, Oriented to person, place, time, situation. Cardiovascular: Patient's skin is warm and dry. Respiratory: Airway is patent Respiratory effort is even, unlabored, Respiratory pattern is regular, symmetrical. : Reports vaginal bleeding that is with clots, light flow. Derm: Skin is intact, Skin is pink, warm \T\ dry. Musculoskeletal: Circulation, motion, and sensation intact. Range of motion: intact in all extremities. RIGGING MAN: 21:24 unknown, 7 weeks jb4 07/07 01:16 5, Full Term 3, 1, Living 3, LMP 05/18/2024, Verified, EDC sb4 02/22/2025, Gestational age from LMP: 7 weeks 1 day Historical: - Allergies: 07/06 21:24 No Known Allergies; jb4 - PMHx: 21:24 None; jb4 - PSHx: 21:24 None; jb4 - Immunization history:: Adult Immunizations up to date. - Infectious Disease History:: Denies. - Social history:: Smoking status: Patient denies any tobacco usage or history of. Screenin:27 [facility] ED Fall Risk Assessment (Adult) History of falling in the last 3 months, 5 including since admission No falls in past 3 months (0 pts) Confusion or Disorientation No (0 pts) Intoxicated or Sedated No (0 pts) Impaired Gait No (0 pts) Mobility Assist Device Used No (0 pt) Altered Elimination No (0 pt). [facility] ED Fall Risk Assessment (Adult) Score/Fall Risk Level 0 - 2 = Low Risk Oriented to surroundings, Maintained a safe environment, Hourly rounding (assess needs \T\ fall precautionary measures) done. Abuse screen: Denies threats or abuse. Nutritional screening: No deficits noted. Tuberculosis screening: No symptoms or risk factors identified. Assessment: 23:26 General: Appears in no apparent distress. comfortable, well groomed, well nourished. 5 Pain: Denies pain. Neuro: No deficits noted. Cardiovascular: No deficits noted. Respiratory: No deficits noted. GI: No deficits noted. No signs and/or symptoms were reported involving the gastrointestinal system. : No deficits noted. No signs and/or symptoms were reported regarding the genitourinary system. : Reports vaginal bleeding that is pt reports spotting today. +preg test recently. EENT: No deficits noted. No signs and/or symptoms were reported regarding the EENT system. Derm: No deficits noted. No signs and/or symptoms reported regarding the dermatologic system. Musculoskeletal: No deficits noted. No signs and/or symptoms reported regarding the musculoskeletal system. 23:27 Reassessment: pt refused pelvic exam. [facility] Vital Signs: 21:23 BP 136 / 83; Pulse 85; Resp 16; Temp 97.6(TE); Pulse Ox 100% on R/A; Weight 99.79 kg jb4 (R); Height 5 ft. 5 in. (R); 22:45 BP 121 / 78; Pulse 74; Resp 17; Pulse Ox 99% on R/A; 5 23:45 BP 136 / 81; Pulse 83; Resp 17; Pulse Ox 100% on R/A; [facility] 07/07 00:43 BP 136 / 78; Pulse 80; Resp 17; Pulse Ox 99% on R/A; hm5 07/06 21:23 Body Mass Index 36.61 (99.79 kg, 165.1 cm) jb4 ED Course: 07/06 20:37 Patient arrived in ED. jj6 20:50 Cori Fitzgerald PA-C is PHCP. sb4 20:50 Rosendo Hamm MD is Attending Physician. sb4 21:06 Deon Oliva, RN is Primary Nurse. jb4 21:24 Triage completed. jb4 21:24 Arm band placed on right wrist. jb4 22:17 US Transvaginal Ob In Process Unspecified. EDMS 23:25 UA Rfx Cliff Cult if indicated Sent. hm5 23:25 Basic Metabolic Panel Sent. hm5 23:25 CBC with Diff Sent. hm5 23:25 Test, Urine Sent. hm5 23:25 Quantitative Hcg Sent. hm5 23:25 No provider procedures requiring assistance completed. Inserted saline lock: 20 gauge hm5 in left antecubital area, using aseptic technique. Blood collected. Flushed with 10 mL NS. 23:28 Patient has correct armband on for positive identification. Bed in low position. Call hm5 light in reach. Side rails up X 1. Provided Education on: plan of care. 07/07 00:42 IV discontinued, intact, bleeding controlled, No redness/swelling at site. Pressure 5 dressing applied. Administered Medications: No medications were administered Medication: 07/06 23:27 VIS not applicable for this client. [facility] Outcome: 07/07 00:33 Discharge ordered by . [facility] 00:43 Discharged to home ambulatory, [facility] 00:43 Condition: stable 00:43 Discharge instructions given to patient, Instructed on discharge instructions, follow up and referral plans. Demonstrated understanding of instructions, follow-up care, 00:44 Patient left the ED. [facility] Signatures: Dispatcher [employer] EDAR Deon Oliva, RN RN jb4 Sheri Holley jj6 Cori Fitzgerald PA-C PA-C sb4 Leticia Andino, BANDAR RN [facility]
--- NOTE | 2024-07-07 00:34 | EDPHYS ---
Physician Documentation [facility] Name: Yolanda Christianson Age: 28 yrs Sex: Female : 1995 Arrival Date: 07/06/2024 Time: 20:34 Bed 18 Private MD: ED Physician Rosendo Hamm HPI: 07/07 01:16 This 28 yrs old Female presents to ER via Ambulatory with complaints of sb4 Vaginal Bleeding, EST 7 WKS GESTATION. 01:16 The patient presents with vaginal bleeding that is moderate, with clots. Onset: The sb4 symptoms/episode began/occurred today. Modifying factors: The symptoms are alleviated by nothing, the symptoms are aggravated by nothing. Associated signs and symptoms: The patient has no apparent associated signs or symptoms. The patient is sexually active. The patient's method of control includes nothing. CONCRETE PAVER: 07/06 21:24 unknown, 7 weeks jb4 07/07 01:16 5, Full Term 3, 1, Living 3, LMP 05/18/2024, Verified, EDC sb4 02/22/2025, Gestational age from LMP: 7 weeks 1 day Historical: - Allergies: 07/06 21:24 No Known Allergies; jb4 - PMHx: 21:24 None; jb4 - PSHx: 21:24 None; jb4 - Immunization history:: Adult Immunizations up to date. - Infectious Disease History:: Denies. - Social history:: Smoking status: Patient denies any tobacco usage or history of. ROS: 07/07 01:16 Positive for vaginal discharge, missed period, sb4 Constitutional: Negative for fever, chills, and weight loss, All other systems are negative, Exam: 01:16 Constitutional: This is a well developed, well nourished patient who is awake, alert, sb4 and in no acute distress. Head/Face: Normocephalic, atraumatic. Eyes: Extra-ocular motions intact. Periorbital areas with no swelling, redness, or edema. ENT: Mucous membranes moist. Cardiovascular: Regular rate and rhythm with a normal S1 and S2. Respiratory: No increased work of breathing, no retractions or nasal flaring. Abdomen/GI: Soft, non-tender, no distension. Skin: Warm, dry with normal turgor. Normal color with no rashes, no lesions, and no evidence of cellulitis. 01:16 : Pelvic Exam: The exam is refused by the patient/guardian. The risks and consequences are understood by the patient, Vital Signs: 07/06 21:23 BP 136 / 83; Pulse 85; Resp 16; Temp 97.6(TE); Pulse Ox 100% on R/A; Weight 99.79 kg jb4 (R); Height 5 ft. 5 in. (R); 22:45 BP 121 / 78; Pulse 74; Resp 17; Pulse Ox 99% on R/A; hm5 23:45 BP 136 / 81; Pulse 83; Resp 17; Pulse Ox 100% on R/A; hm5 07/07 00:43 BP 136 / 78; Pulse 80; Resp 17; Pulse Ox 99% on R/A; hm5 07/06 21:23 Body Mass Index 36.61 (99.79 kg, 165.1 cm) jb4 MDM: 07/06 21:11 Medical Screening Exam initiated sb4 07/07 01:18 Differential diagnosis: dysmenorrhea, ectopic , malignancy, menometrorrhagia, sb4 menorrhea, threatened Ab, molar preganancy, ruptured ectopic , uterine fibroids, urinary tract infection. Data reviewed: vital signs, nurses notes, lab test result(s), radiologic studies, and as a result, I will discharge patient. Counseling: I had a detailed discussion with the patient and/or guardian regarding the historical points, exam findings, and any diagnostic results supporting the discharge/admit diagnosis, lab results, radiology results, the need for outpatient follow up, for definitive care, to return to the emergency department if symptoms worsen or persist or if there are any questions or concerns that arise at home. 07/06 21:50 Order name: Basic Metabolic Panel; Complete Time: 00:29 [facility] 07/06 21:50 Order name: CBC with Diff; Complete Time: 00:08 [facility] 07/06 21:50 Order name: Test, Urine; Complete Time: 00:29 [facility] 07/06 21:50 Order name: Quantitative Hcg; Complete Time: 00:29 [facility] 07/06 21:50 Order name: UA Rfx Cliff Cult if indicated; Complete Time: 00:24 [facility] 07/07 00:26 Order name: Urine Culture EDMS 07/06 21:50 Order name: US Transvaginal Ob; Complete Time: 22:32 sb4 07/06 21:50 Order name: IV Saline Lock; Complete Time: 23:25 sb4 07/06 21:50 Order name: Labs collected and sent; Complete Time: 23:25 sb4 07/06 21:50 Order name: Pelvic Exam Setup; Complete Time: 23:08 sb4 Administered Medications: No medications were administered Disposition: : Co-signature as Attending Physician, Rosendo Hamm MD I reviewed the patient's care rt provided by the Advanced Practice Provider and agree with the diagnosis and treatment plan. Disposition Summary: 07/07/24 00:33 Discharge Ordered Notes: Location: Home sb4 Problem: new sb4 Symptoms: are unchanged sb4 Condition: Stable sb4 Diagnosis - Threatened sb4 Followup: sb4 - With: Emergency Department - When: 48 Hours - Reason: Repeat Beta-HCG (48 Hours) Discharge Instructions: - Discharge Summary Sheet sb4 - Threatened Miscarriage sb4 - Vaginal Bleeding During , First Trimester sb4 Forms: - Patient Portal Instructions sb4 - Leadership Thank You Letter sb4 Signatures: Dispatcher [employer] Deon Johnson, BANDAR RN jb4 Cori Fitzgerald PATooC PA-C sb4 Rosendo Hamm MD MD rt
[2024-07-07 01:05] VITALS: TEMP 97.6
[2024-07-07 01:10] VITALS: BP 136/78; O2SAT 99
== END 2024-07-07 00:44 | disposition home or self-care (01) ==
LOC: ER 20:34
DX: O20.0 Threatened abortion (principal); Z3A.01 Less than 8 weeks gestation of pregnancy
CPT/HCPCS: 36415; 76817; 80048; 81001; 81025; 84702; 85025; 87086; 87088; 99284